=== PATIENT | male | born 1975 | race Caucasian/White ===

== ENCOUNTER 2020-03-25 07:22 | Outpatient (REF) | payer OTHER, SELFPAY ==
[2020-03-25 08:30] LABS: Anion Gap 11 (12-20); Blood Urea Nitrogen 15 mg/dL (9-16); Carbon Dioxide 29 mmol/L (22-29); Chloride 107 mmol/L (96-108); Estimated Glomerular Filt Rate > 60; Sodium 142 mmol/L (135-145)
[2020-03-25 09:01] LABS: Thyroid Stimulating Hormone 1.48 mIU/mL (0.32-4.0)
== END 2020-03-25 07:23 | disposition home or self-care (01) ==
LOC: HO.LAB 07:22
PROVIDERS: PCP Physician Assistant; Visit Provider Internal Medicine Cardiovascular Disease
DX: I42.9 Cardiomyopathy, unspecified (principal); I47.2 Ventricular tachycardia
CPT/HCPCS: 80051; 82565; 83735; 84443; 84520

== ENCOUNTER 2020-08-07 07:19 | Outpatient (REF) | payer OTHER, SELFPAY ==
[2020-08-07 08:07] LABS: Hematocrit 44.2 % (42-52); Hemoglobin 14.8 g/dl (14.0-18.0); Mean Corpuscular HGB Conc 33.5 g/dl (31.0-36.0); Mean Corpuscular Hemoglobin 32.2 pg (27.0-33.0); Mean Corpuscular Volume 96.3 fL (80-98); Mean Platelet Volume 9.9 fL (9.4-12.4); Platelet Count 229 X10*3/uL (160-400); Red Blood Count 4.59 X10*6/uL (4.60-5.80); Red Cell Distribution Width 13.2 % (11.0-16.0); White Blood Count 5.6 X10*3/uL (4.8-10.8)
[2020-08-07 08:33] LABS: Alanine Aminotransferase 19 U/L (0-40); Albumin Level 4.3 g/dL (3.5-5.0); Alkaline Phosphatase 59 U/L (39-117); Anion Gap 13 (12-20); Aspartate Amino Transferase 19 U/L (5-37); Bilirubin Total 0.6 mg/dL (0.0-1.0); Blood Urea Nitrogen 17 mg/dL (9-16); Calcium 9.2 mg/dL (8.4-10.2); Carbon Dioxide 25 mmol/L (22-29); Chloride 109 mmol/L (96-108); Cholesterol 231 mg/dL; Estimated Glomerular Filt Rate > 60; Glucose Fasting 102 mg/dL (60-99); HDL Cholesterol 58 mg/dL; LDL Cholesterol Calculated 145 mg/dl; Potassium 4.5 mmol/L (3.3-5.1); Sodium 142 mmol/L (135-145); Total Protein 7.5 g/dL (6.5-8.0); Triglycerides 142 mg/dL
== END 2020-08-07 07:20 | disposition home or self-care (01) ==
LOC: HO.LAB 07:19
PROVIDERS: PCP Physician Assistant; Visit Provider Physician Assistant
DX: I10 Essential (primary) hypertension (principal); I42.9 Cardiomyopathy, unspecified; Z13.220 Encounter for screening for lipoid disorders
CPT/HCPCS: 36415; 80053; 80061; 85027

== ENCOUNTER → 2020-11-01 07:25 | Outpatient (REF) | payer OTHER, SELFPAY ==
--- NOTE | 2020-11-01 07:31 | CA_ITS ---
Transthoracic Echocardiogram Patient (Last, First, Middle): Sean Bush, Gender: Male Date of : 1975 Age: 45 Procedure Date: 11/01/2020 Procedure Type: Transthoracic Echocardiogram Location: OP Height: 180.34 cm Weight: 81.65 kg BSA: 2.02 m2 Heart Rate: bpm BP: 118 / 60 mmHg Cornice Upholsterer: Referring MD: Leon Fox MD Bsa Officer: Victor Hugo Leggett MD Symptoms: CARDIOMYOPATHY Study Quality: Fair ECG Rhythm: Sinus Conclusions: - 1. 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 Mild aortic and mitral regurgitation 3. Normal RV systolic pressure 4. No pericardial effusion Findings Left Ventricle Normal left ventricular cavity size. There is normal left ventricular wall thickness. The left ventricular systolic function is moderately decreased. The visually estimated ejection fraction is between 35-40%. There is moderate global hypokinesis. Spectral Doppler is indicative of an impaired relaxation filling pattern. E/E prime ratio is <8, consistent with normal filling pressures. Evidence suggests grade I (mild) diastolic dysfunction. There is no evidence of a ventricular septal defect. There is heavy trabeculation in the distal 3rd of the left ventricle suggestive of noncompaction. Right Ventricle Normal right ventricular cavity size and systolic function. There is an ICD wire seen in the right ventricle. Atria The left atrium is mildly dilated. There is no evidence of interatrial shunt. The right atrium is normal in size. Aortic Valve Normal aortic valve structure and function. There is no aortic valve stenosis. There is mild aortic valve regurgitation. Mitral Valve Normal mitral valve structure and function. There is trace mitral valve regurgitation. There is no mitral valve stenosis. Pulmonic Valve The pulmonic valve is likely normal. Tricuspid Valve Likely normal tricuspid valve structure and function. There is mild tricuspid valve regurgitation. The right ventricular systolic pressure is normal. The right ventricular systolic pressure is 23 mmHg. Normal right atrial pressure. There is no evidence of pulmonary hypertension. Great Vessels All visible segments of the aorta are normal in size. The pulmonary artery was not well visualized. Venous The inferior vena cava is normal in size and collapses greater than 50% with inspiration. Pericardium/Pleural There is no evidence of pericardial effusion. Prior Study Comparison No significant change compared to prior study dated: 05/09/2019. Measurements 2D Linear Measurements IVSd: 1.14 0.6-0.9/0.6-1.0 cm LVIDd: 6.16 3.9-5.3/4.2-5.9 cm LVIDd Index: 3.05 2.4-3.2/2.2-3.1 cm/m2 LVIDs: 4.87 2.0-3.6 cm LVPWd: 1.10 0.7-1.1 cm LA Diam: 4.50 2.7-3.8/3.0-4.0 cm LAIDs Index: 2.23 1.5-2.3 cm/m2 LV Mass: 373.32 67-162/88-224 g LV Mass Index: 184.81 43-95/49-115 g/m2 LVOT Diam: 2.50 3.0+(-)1.3 cm 2D Systolic Function EF 4C: 34.90 >55% EF 2C: 29.80 >55% EF BiP: 36.70 >55% Mitral Valve MV Pk E: 0.53 MV PK A: 0.55 MV Decel Time: 146.00 E/A: 1.00 E'Lateral: 8.70 E'Medial: 5.98 E/E' Med: 8.90 E/E' Lat: 6.10 PHT: 43.00 MVA PHT: 5.12 Decel Door: 3.65 Aortic Valve AoV Pk Kaden: 1.23 AoV Mn Kaden: 0.81 AoV VTI: 0.31 AoV Pk Grad: 6.00 Aov Mn Grad: 3.00 HOLLI Cont.VTI: 2.16 LVOT LVOT Pk Kaden: 0.56 LVOT Mn Kaden: 0.35 LVOT VTI: 0.13 LVOT Pk Grad: 1.00 LVOT Mn Grad: 1.00 LVOT Diam: 2.50 LVOT Area: 4.91 Diastolic Function MV Pk E: 0.53 MV Pk A: 0.55 E/A: 1.00 E'Medial: 5.98 E/E' Med: 8.90 E' Laterial: 8.70 E/E' Lat: 6.10 Tricuspid Valve TR Pk Kaden: 2.24 TR Pk Grad: 20.00 RA Press: 3.00 RVSP: 23.00 Pulmonary Valve PV Pk Kaden: 1.08 Peak PV Grad: 5.00 Updated in Other Vendor System with Status of Final Victor Hugo Leggett MD electronically signed on 11/01/2020 4:15:12 PM with status of Final
== END ==
LOC: HO.CARD 07:25
PROVIDERS: PCP Physician Assistant; Visit Provider Internal Medicine Cardiovascular Disease
DX: I21.9 Acute myocardial infarction, unspecified (principal); I25.10 Atherosclerotic heart disease of native coronary artery without angina pectoris; Z82.49 Family history of ischemic heart disease and other diseases of the circulatory system
CPT/HCPCS: 93306

== ENCOUNTER 2021-04-24 06:50 | Outpatient (REF) | payer OTHER, SELFPAY ==
[2021-04-24 08:28] LABS: Alanine Aminotransferase 26 U/L (0-40); Anion Gap 11 (12-20); Aspartate Amino Transferase 18 U/L (5-37); Blood Urea Nitrogen 13 mg/dL (9-16); Calcium 8.8 mg/dL (8.4-10.2); Carbon Dioxide 26 mmol/L (22-29); Chloride 108 mmol/L (96-108); Cholesterol 237 mg/dL; Estimated Glomerular Filt Rate > 60; Glucose Random 100 mg/dL (60-115); HDL Cholesterol 46 mg/dL; LDL Cholesterol Calculated 164 mg/dl; Potassium 4.9 mmol/L (3.3-5.1); Sodium 140 mmol/L (135-145); Triglycerides 135 mg/dL
== END 2021-04-24 06:51 | disposition home or self-care (01) ==
LOC: HO.LAB 06:50
PROVIDERS: PCP Physician Assistant; Visit Provider Internal Medicine Cardiovascular Disease
DX: I42.8 Other cardiomyopathies (principal)
CPT/HCPCS: 36415; 80048; 80061; 84450; 84460

== ENCOUNTER 2021-05-15 08:06 | Outpatient (REF) | payer OTHER, SELFPAY ==
[2021-05-15 09:14] LABS: Anion Gap 12 (12-20); Blood Urea Nitrogen 14 mg/dL (9-16); Carbon Dioxide 29 mmol/L (22-29); Chloride 104 mmol/L (96-108); Estimated Glomerular Filt Rate > 60; Magnesium 2.2 mg/dL (1.6-2.6); Potassium 5.1 mmol/L (3.3-5.1); Sodium 140 mmol/L (135-145)
[2021-05-15 14:49] LABS: Thyroid Stimulating Hormone 1.45 uIU/mL (0.32-4.0)
== END 2021-05-15 08:07 | disposition home or self-care (01) ==
LOC: HO.LAB 08:06
PROVIDERS: PCP Physician Assistant; Visit Provider Internal Medicine Cardiovascular Disease
DX: I47.2 Ventricular tachycardia (principal)
CPT/HCPCS: 36415; 80051; 82565; 83735; 84443; 84520

== ENCOUNTER 2021-05-27 06:58 | Outpatient (REF) | payer OTHER, SELFPAY ==
[2021-05-27 07:51] LABS: Alanine Aminotransferase 17 U/L (0-40); Aspartate Amino Transferase 19 U/L (5-37); Cholesterol 184 mg/dL; HDL Cholesterol 43 mg/dL; LDL Cholesterol Calculated 116 mg/dl; Triglycerides 126 mg/dL
== END 2021-05-27 06:59 | disposition home or self-care (01) ==
LOC: HO.LAB 06:58
PROVIDERS: PCP Physician Assistant; Visit Provider Internal Medicine Cardiovascular Disease
DX: I42.8 Other cardiomyopathies (principal); I47.2 Ventricular tachycardia
CPT/HCPCS: 36415; 80061; 84450; 84460

== ENCOUNTER → 2021-06-18 08:23 | Outpatient (REF) | payer OTHER, SELFPAY ==
--- NOTE | ~2021-06-18 | NM_ITS ---
Myocardial perfusion study Indication: Ventricular tachycardia to assess for myocardial ischemia Technique: The patient was brought in for a Lexiscan perfusion study on 06/18/2020. Patient performed low-level exercise and was injected 0.4 mg of Lexiscan intravenously. Within a minute of injection, 30 mCi of sestamibi was given intravenously. Images were obtained using the SPECT gamma camera interlaced with the gating device. Images were obtained in supine position. Resting perfusion study was performed on 06/20/2020. Patient was administered 30 mCi of sestamibi intravenously at rest. Images were then obtained in supine position. Images were obtained with and without CT attenuation. Total DLP 92 mGy-cm. Images were processed with the software and compared side to side in short axis, horizontal long axis and vertical long axis views. Findings: The stress perfusion study showed non attenuated images show very small area of mildly reduced uptake in the basal and. As well as basal inferoseptal wall of the LV myocardium. This finding is also seen on attenuated corrected images. Remainder of the LV myocardium is normally perfused.. The gated study shows low normal LV systolic function with calculated LVEF of 53%. LV cavity is mildly dilated size. The gated study shows diffusely reduced wall thickening and contraction of segments. Resting study shows normal uptake of radiotracer in all segments of LV myocardium. Gating at rest reveals diffuse mild hypokinesis with ejection fraction at 45%. The findings are consistent with probably small area of reversible defect of the basal inferior and basal inferoseptal wall suggestive of ischemia.. NM/NM chloe perf SPECT rest & str Impression: 1. Myocardial perfusion imaging study shows mild intensity small area of reversible defect of the basal inferior and basal inferoseptal wall. Shifting attenuation artifact cannot be entirely ruled out on this study 2. Gated LVEF is 53% at stress and 45% with rest 3. Transient ischemic dilatation not present but LV cavity is dilated EKG is nondiagnostic for ischemia
--- NOTE | 2021-06-18 08:26 | CA_ITS ---
Acquisition Time: 2021-06-18 09:40:11 Total Exercise Time: 00:02:00 Test Indications: VT Medications: SEE CHART Protocol: LEXISCAN Max HR: 110 BPM 62% of Pred: 175 BPM Max BP: 114/080 mmHG Max Work Load: 1.6 METS Pharmacological stress test with Lexiscan injection, while walking on treadmill, without anginal symptoms, with isolated PVCs, with normotensive response to injection, with nondiagnostic EKG for ischemia. In recovery he reported lightheadedness that was treated with Aminophylline 75mg IVP to reverse Lexiscan with resolution of symptoms. Nuclear images pending. Test reviewed with Dr Leggett. Referred By: Leon Fox Overread By: ALANA BLANCO
== END ==
LOC: HO.CARD 08:23
PROVIDERS: PCP Physician Assistant; Visit Provider Internal Medicine Cardiovascular Disease
DX: I47.2 Ventricular tachycardia (principal); I42.8 Other cardiomyopathies
CPT/HCPCS: 78452; 93017; A9500; J0280; J2785

== ENCOUNTER 2022-04-14 09:56 | Outpatient (REF) | payer OTHER, SELFPAY ==
[2022-04-14 11:18] LABS: Anion Gap 17 (12-20); Blood Urea Nitrogen 11 mg/dL (9-16); Calcium 9.5 mg/dL (8.4-10.2); Carbon Dioxide 24 mmol/L (22-29); Chloride 106 mmol/L (96-108); Estimated Glomerular Filt Rate > 60; Glucose Random 96 mg/dL (60-115); Magnesium 2.1 mg/dL (1.6-2.6); Potassium 4.8 mmol/L (3.3-5.1); Sodium 142 mmol/L (135-145)
== END 2022-04-14 09:57 | disposition home or self-care (01) ==
LOC: HO.LAB 09:56
PROVIDERS: PCP Physician Assistant; Visit Provider Internal Medicine Cardiovascular Disease
DX: I47.20 Ventricular tachycardia, unspecified (principal)
CPT/HCPCS: 36415; 80048; 83735

== ENCOUNTER 2022-10-29 07:05 | Outpatient (REF) | payer OTHER, SELFPAY ==
[2022-10-29 07:39] LABS: Hematocrit 44.2 % (42.0-52.0); Hemoglobin 15.3 g/dl (14.0-18.0); Mean Corpuscular HGB Conc 34.6 g/dl (31.0-36.0); Mean Corpuscular Hemoglobin 32.5 pg (27.0-33.0); Mean Corpuscular Volume 93.8 fL (80.0-98.0); Mean Platelet Volume 9.3 fL (9.4-12.4); Platelet Count 213 X10*3/uL (160-400); Red Blood Count 4.71 X10*6/uL (4.60-5.80); Red Cell Distribution Width 13.2 % (11.0-16.0); White Blood Count 4.9 X10*3/uL (4.8-10.8)
[2022-10-29 08:45] LABS: Alanine Aminotransferase 19 U/L (0-40); Albumin Level 4.2 g/dL (3.5-5.0); Alkaline Phosphatase 63 U/L (39-117); Anion Gap 15 (12-20); Aspartate Amino Transferase 21 U/L (5-37); Bilirubin Total 0.9 mg/dL (0.0-1.0); Blood Urea Nitrogen 13 mg/dL (9-16); Calcium 9.3 mg/dL (8.4-10.2); Carbon Dioxide 24 mmol/L (22-29); Chloride 107 mmol/L (96-108); Cholesterol 246 mg/dL; Estimated Glomerular Filt Rate > 60; Glucose Fasting 103 mg/dL (60-99); HDL Cholesterol 45 mg/dL; LDL Cholesterol Calculated 166 mg/dl; Potassium 4.8 mmol/L (3.3-5.1); Sodium 141 mmol/L (135-145); Total Protein 7.2 g/dL (6.5-8.0); Triglycerides 177 mg/dL
== END 2022-10-29 07:06 | disposition home or self-care (01) ==
LOC: HO.LAB 07:05
PROVIDERS: PCP Physician Assistant; Visit Provider Physician Assistant
DX: I42.9 Cardiomyopathy, unspecified (principal); E78.00 Pure hypercholesterolemia, unspecified
CPT/HCPCS: 36415; 80053; 80061; 84443; 85027

== ENCOUNTER → 2022-11-02 14:22 | Outpatient (BNVA) | payer OTHER, SELFPAY | PROVIDERS: PCP Physician Assistant; Visit Provider Nurse Practitioner Family ==

== ENCOUNTER 2023-02-02 07:13 | Outpatient (REF) | payer OTHER, SELFPAY ==
[2023-02-02 08:10] LABS: Alanine Aminotransferase 19 U/L (0-40); Albumin Level 4.2 g/dL (3.5-5.0); Alkaline Phosphatase 66 U/L (39-117); Anion Gap 12 (12-20); Aspartate Amino Transferase 21 U/L (5-37); Bilirubin Total 0.7 mg/dL (0.0-1.0); Blood Urea Nitrogen 10 mg/dL (9-16); Calcium 9.4 mg/dL (8.4-10.2); Carbon Dioxide 23 mmol/L (22-29); Chloride 111 mmol/L (96-108); Cholesterol 239 mg/dL (<200); Estimated Glomerular Filt Rate > 60; Glucose Fasting 108 mg/dL (60-99); Glucose Random 106 mg/dL (60-115); HDL Cholesterol 52 mg/dL (>40); LDL Cholesterol Calculated 160 mg/dL (<100); Potassium 4.7 mmol/L (3.3-5.1); Sodium 141 mmol/L (135-145); Total Protein 7.5 g/dL (6.5-8.0); Triglycerides 139 mg/dL (<150)
== END 2023-02-02 07:14 | disposition home or self-care (01) ==
LOC: HO.LAB 07:13
PROVIDERS: Absent Provider Internal Medicine Cardiovascular Disease; PCP Physician Assistant; Visit Provider Physician Assistant
DX: I49.01 Ventricular fibrillation (principal); E78.2 Mixed hyperlipidemia; R73.09 Other abnormal glucose
CPT/HCPCS: 36415; 80048; 80053; 80061; 83735

== ENCOUNTER 2023-04-13 08:42 | Outpatient (REF) | payer OTHER, SELFPAY ==
[2023-04-13 10:05] LABS: Alanine Aminotransferase 21 U/L (0-40); Aspartate Amino Transferase 21 U/L (5-37); Cholesterol 129 mg/dL (<200); HDL Cholesterol 52 mg/dL (>40); LDL Cholesterol Calculated 52 mg/dL (<100); Triglycerides 129 mg/dL (<150)
[2023-04-13 10:06] LABS: Anion Gap 14 (12-20); Blood Urea Nitrogen 13 mg/dL (9-16); Calcium 9.8 mg/dL (8.4-10.2); Carbon Dioxide 24 mmol/L (22-29); Chloride 109 mmol/L (96-108); Estimated Glomerular Filt Rate > 60; Glucose Random 104 mg/dL (60-115); Magnesium 2.1 mg/dL (1.6-2.6); Potassium 4.6 mmol/L (3.3-5.1); Sodium 142 mmol/L (135-145)
== END 2023-04-13 08:43 | disposition home or self-care (01) ==
LOC: HO.LAB 08:42
PROVIDERS: Nurse Practitioner Family; PCP Physician Assistant; Visit Provider Internal Medicine Cardiovascular Disease
DX: E78.5 Hyperlipidemia, unspecified (principal); I47.29 Other ventricular tachycardia
CPT/HCPCS: 36415; 80048; 80061; 83735; 84450; 84460

== ENCOUNTER 2023-09-15 08:33 | Outpatient (AMB) | payer OTHER, SELFPAY ==
--- NOTE | 2023-09-15 08:53 | A.OFFPC_ITS ---
Vital Signs 09/15/23 08:56 Height 5 ft 11 in Weight 198 lb 6 oz BMI 27.7 BP 88/62 L Blood Pressure Location Lt brachial Position Sitting Pulse 72 Pulse Source Pulse Oximeter Pulse Oximetry (%) 98 Oxygen Delivery Method Room Air Intake Visit Reasons: Annual Exam Intake Note: Patient is here today for a physical. 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 Required: No K 9 Police Officer: Not Required per policy Accompanied by: Self / Same As Patient Allergies montelukast [From Singulair] Allergy (Unknown, Verified 09/15/23 09:03) GERD Medication List - Last Reconciled 09/15/23 by Tyler Davies PA-C bisacodyl (Dulcolax (bisacodyl)) 10 mg (2 x 5 mg) PO ONCE 1 day carvedilol 6.25 mg PO BID 90 days carvedilol 25 mg PO BID 90 days lisinopril 2.5 mg (1/2 x 5 mg) PO BID polyethylene glycol 3350 (Miralax) 238 grams PO ONCE Tobacco use date assessed: 09/15/23 Dental Screening Dental Screen Date: 09/15/23 Did you have a dental visit in the last 12 months?: Yes Did you have a dental problem in the last 6 months where you did not have access to dental care?: No Was dental information given to patient?: Patient has dentist HPI Annual Exam HPI Details Sean is a 48 -year-old male here today for an annual physical. Patient's past medical history significant for essential hypertension, history ventricular tachycardia requiring ICD implantation, dilated cardiomyopathy, hyperlipidemia. ? .. ? Cardiomyopathy, history of ventricular tachycardia requiring ICD Still followed by Cardiology q.6 months. Patient denies any chest pains, palpitations, dizziness.? He did have his ICD discharge and March of 2020 to, followed up with File Keeper whom believes it was in the setting of mild dehydration otherwise no further symptoms. -->Of note blood pressure on the lower s emely today. Patient asymptomatic. We attribute his lower blood pressures to a small degree of dehydration. Advised to monitor his blood pressure at home and if consistently below 90/60 will consider discontinuing lisinopril ? .. ? HTN: Has been stable , currently on lisinopril 2.5 mg b.i.d.. Noted hypotension today in office. ? . ? .. ? VAccine: UTD with FLu and tetanus.? Also has gotten COVID vaccine, up-to-date with flu vaccine Colon cancer screening: Has upcoming scheduled colonoscopy though will need to reschedule due to conflicts in childcare [facility] Surgical History History of placement of internal cardiac defibrillator History of cardiac catheterization History of open heart surgery Family History (Updated 09/15/23 @ 09:07 by Tyler Davies PA-C) Father No problems noted. 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 1. Little interest or pleasure in doing things: not at all 2. Feeling down, depressed, or hopeless: not at all 3. Trouble falling or staying asleep, or sleeping too much: not at all 4. Feeling tired or having little energy: not at all 5. Poor appetite or overeating: not at all 6. Feeling bad about yourself - or that you are a failure or have let yourself or your family down: not at all 7. Trouble concentrating on things, such as reading the newspaper or watching television: not at all 8. Moving or speaking so slowly that other people could have noticed. Or the opposite - being so fidgety or restless that you have been moving around a lot more than usual: not at all 9. Thoughts that you would be better off or of hurting yourself in some way: not at all Total score: 0 Depression Screening Interpretation: Negative Depression Screening Done: Yes Source: Developed by Drs. Juan Griffin, Jadyn Toribio, Zohaib Curiel and colleagues, with an educational ewa from [employer]. Thrive Questionnaire Date Thrive assessed: 09/15/23 I am a: Patient What is your living situation today?: I have a steady place to live Within the past 12 months, did the food you bought not last and you didn't have the money to get more?: Never true Within the past 12 months, did you worry whether your food would run out before you got money to buy more?: Never true Do you have trouble paying for medicines?: No Do you have trouble getting transportation to medical appointments?: No Do you have trouble paying your heating and electricity bill?: No Do you have trouble taking care of your child, family member or friend?: No Do you have trouble with day-to-day activities such as bathing, preparing meals, shopping, managing finances, etc.?: No Are you currently unemployed and looking for a job?: No Are you interested in more education?: No Currently or been in a relationship where the following occur: no concerns reported THRIVE Score: 0 AUDIT C Alcohol Use Questionnaire (AUDIT-C) 1. How often do you have a drink containing alcohol?: 2-3 times a week 2. How many drinks containing alcohol do you have on a typical day when you are drinking?: 1 or 2 Total Score: 3 NOBLE-7 AMB Questionnaire NOBLE-7 Date NOBLE - 7 assessed: 09/15/23 Feeling nervous, anxious, or on edge: 0 = Not at all Not being able to stop or control worryin = Not at all Worrying too much about different things: 0 = Not at all Trouble relaxin = Not at all Being so restless that it is hard to sit still: 0 = Not at all Becoming easily annoyed or irritable: 0 = Not at all Feeling afraid as if something awful might happen: 0 = Not at all Total NOBLE-7 score (0-4 normal; 5-9 mild; 10-14 moderate; 15-21 severe): 0 Source: Developed by Drs. Juan Griffin, Zohaib Zamora and colleagues, with an educational ewa from [employer]. Review of Systems Const Denies body aches, Denies chills, Denies excessive sweating, Denies fatigue, Denies fever(s) and Denies headache(s) Eyes Denies blurry vision ENT Denies dysphagia, Denies vertigo, Denies dizziness, Denies headache(s), Denies hearing loss and Denies tinnitus Card Denies chest pain, Denies chest pain with activity, Denies syncope, Denies irregular heart rhythm and Denies dyspnea Resp Denies chest congestion, Denies cough, Denies hemoptysis, Denies dyspnea and Denies wheezing GI Denies abdominal pain, Denies melena, Denies hematochezia, Denies coffee ground emesis, Denies dysphagia, Denies diarrhea, Denies nausea and Denies vomiting Denies difficulty urinating, Denies dysuria, Denies urinary frequency, Denies urinary hesitancy and Denies urinary urgency Musc Denies arthralgias, Denies limited range of motion, Denies muscle cramps and De nies muscle weakness Skin/Breast Denies rash and Denies skin ulcer Neuro Denies Abnormal speech present, Denies confusion, Denies vertigo, Denies dizz iness, Denies syncope, Denies headache(s), Denies memory loss and Denies seizure-like activity Psych Denies anxiety, Denies confusion, Denies depression, Denies memory loss, Denies panic attacks and Denies paranoia Endo Denies excessive sweating, Denies fatigue, Denies flushing, Denies polydipsia and Denies polyuria Aller/Immun Denies wheezing Physical exam (Primary Care) Vital Signs: Last Vital Signs Pulse 72 09/15/23 08:56 BP 88/62 L 09/15/23 08:56 Pulse Ox 98 09/15/23 08:56 Oxygen Delivery Method Room Air 09/15/23 08:56 BMI result Body Mass Index 27.7 Tobacco/Smoking Status: Tobacco use Status Tobacco use date assessed 09/15/23 09/15/23 09:01 Patient Tobacco Use Status Never used Tobacco 09/15/23 09:07 e-Cigarette/Vaping Use Never Used 09/15/23 09:07 PHQ-9: PHQ-9 Score PHQ-9: Total score 0 09/15/23 10:35 Depression Screening Interpretation: Negative Thrive Assessment: Date of Thrive Assessment Date Thrive assessed 09/15/23 09/15/23 09:01 Currently or been in a relationship where the following occur: no concerns reported Const General: cooperative, comfortable, no acute distress, alert and awake; No confusion Orientation/consciousness: oriented to person, oriented to place, patient oriented x3 and No confusion HENMT Head: Yes normocephalic Ears: external ears normal and TM's normal bilaterally Face and sinus: No sinus tenderness Mouth: Normal oral and palatal mucosa present and tongue normal Teeth and gingiva: dentition normal and gingiva normal Throat: Yes posterior oropharynx normal, Yes tonsils normal and Yes uvula midline Eyes Conjunctivae: conjunctivae normal Sclerae: sclerae normal Pupils: Equal, round and reactive pupils present EOM: EOMs intact bilaterally Direct Ophthalmoscopy: No no photophobia Neck Neck: Yes no lymphadenopathy, No tender and Yes no JVD Thyroid: Thyroid normal Carotids: no bruits Chest Chest palpation & inspection: no tenderness Resp Effort & Inspection: normal respiratory effort, no audible wheezes, not labored and no stridor Auscultation: no crackles, no rales, no rhonchi and no wheezes Cardio Jugular venous distension: no JVD Rate: regular rate, not bradycardic and not tachycardic Rhythm: regular rhythm Bruits: no carotid bruits Peripheral pulses: Peripheral pulses 2+ throughout GI Inspection: Yes normal to inspection, No abdominal wall ecchymosis and No visible herniation Palpation (GI): Soft to palpation, nontender, no guarding, not rigid and No hepatosplenomegaly present Auscultation: normoactive bowel sounds General: Yes no CVA tenderness Back/Spine/Pelvis Back: no CVA tenderness and No back tenderness Cervical Spine: cervical ROM normal Thoracic/Lumbar Spine: thoracic and lumbar spine normal to inspection, straight leg raise negative bilaterally, No thoraco-lumbar ROM limited and No lumbar spinal tenderness Skin Lesions: no lesions Rashes: no rashes Wounds: no wounds Neuro General: oriented to person, oriented to place, patient oriented x3, CN's II-XI intact bilaterally and No confusion Cranial nerves: Yes Equal, round and reactive pupils present and Yes Normal accommodation reflex present Cognition (Neuro): normal cognition Speech: No Abnormal speech present Gait exam (Neuro): Normal gait present Motor exam (neuro): 5/5 motor strength present throughout Extrem Right upper extremity: full ROM; no cyanosis Left upper extremity: full ROM; no cyanosis Right lower extremity: no edema Left lower extremity: no edema Psych Appearance: grossly normal Mental Status: mental status grossly normal Affect: normal affect Attitude: cooperative Thought process: Normal thought process present Assessment and Plan Assessment & Plan (1) Annual physical exam: Code(s): Z00.00 - Encounter for general adult medical examination without abnormal findings (2) Screening for diabetes mellitus (DM): Code(s): Z13.1 - Encounter for screening for diabetes mellitus (3) Colon cancer screening: Code(s): Z12.11 - Encounter for screening for malignant neoplasm of colon Plan: Has upcoming scheduled colonoscopy (4) History of placement of internal cardiac defibrillator: Comment: 2019 Shayy Code(s): Z95.810 - Presence of automatic (implantable) cardiac defibrillator Plan: Of note patient did an episode of tachycardia which prompted an ICD discharge in March 2022. Has followed up with his relocation associate whom believes it was in the setting of mild dehydration. Now patient trying to to stay well hydrated. Otherwise no further episodes (5) Cardiomyopathy: Code(s): I42.9 - Cardiomyopathy, unspecified Qualifiers: Cardiomyopathy type: unspecified Qualified Code(s): I42.9 - Cardiomyopathy, unspecified Plan: Patient continues to follow relocation associate's. No overt signs of Congestive heart failure. (6) Hypotension: Code(s): I95.9 - Hypotension, unspecified Qualifiers: Hypotension type: hypotension due to drug Qualified Code(s): I95.2 - Hypotension due to drugs Plan: Unclear etiology to patient's hypotension. He is asymptomatic at this time. Could be from side effect of medication versus hypovolemia. Advised to stay well hydrated. Continue monitoring blood pressure and if consistently below 90/60 will consider discontinuing lisinopril Orders: Orders Hemoglobin A1c Today R73.09 - Other abnormal glucose Complete Blood Count no Diff Today I42.9 - Cardiomyopathy, unspecified Comprehensive [place]. Panel Fast Today R73.09 - Other abnormal glucose Lipid Panel Today E78.2 - Mixed hyperlipidemia Coding Level of Care Code Est Pt Prev Care 40-64y([id number]) Diagnoses Annual physical exam Z00.00 Screening for diabetes mellitus (DM) Z13.1 Colon cancer screening Z12.11 History of placement of internal cardiac defibrillator Z95.810 Cardiomyopathy, unspecified type I42.9 Cardiomyopathy type: unspecified Hypotension due to drugs I95.2 Hypotension type: hypotension due to drug
[2023-09-15 08:56] VITALS: BP 88/62; PULSE 72; O2SAT 98; BMI 27.7
== END 2023-09-15 09:21 | disposition home or self-care (01) ==
PROVIDERS: Visit Provider Physician Assistant
DX: Z00.00 Encounter for general adult medical examination without abnormal findings (principal); I42.9 Cardiomyopathy, unspecified; Z13.1 Encounter for screening for diabetes mellitus; Z12.11 Encounter for screening for malignant neoplasm of colon; Z95.810 Presence of automatic (implantable) cardiac defibrillator; I95.2 Hypotension due to drugs
CPT/HCPCS: 99396

== ENCOUNTER 2024-02-01 07:16 | Day surgery (SDC) | payer OTHER, SELFPAY ==
[2023-06-21 14:53] VITALS: BMI 27.2
--- NOTE | 2024-01-31 10:03 | HO.ANESPROP2 ---
Documented by User: Shi Cunha NP 01/31/24 13:35 HPI - Anesthesia Eval Consult details Narrative: 48yo M for Colonoscopy Noncompaction CMP: Follows [facility] [id number]. Stable at last office visit 07/2023 ICD in situ: Discharge x 1 2021 d/t vfib, carvedilol increased. Last interrrogation 12/2023 on chart. PMFSH Active Problems Active Problems: All Active Problems Hypotension (Acute) Impaired glucose metabolism (Acute) History of placement of internal cardiac defibrillator (Acute) Colon cancer screening (Acute) Other dental procedure status (Acute) HLD (hyperlipidemia) (Acute) Allergic conjunctivitis (Acute) Screening for diabetes mellitus (DM) (Acute) Bronchitis (Acute) Other dental procedure status (Acute) Screening for hypercholesterolemia (Acute) Cardiomyopathy (Acute) Annual physical exam (Acute) Family History Family History Father No problems noted. Mother Breast cancer Brother In good health Son In good health Daughter In good health Surgical History Surgical History History of placement of internal cardiac defibrillator History of cardiac catheterization History of open heart surgery Social History Social History Housing: House Alcohol intake: current Alcohol intake frequency: a few times a week Alcohol type: beer Patient Tobacco Use Status: Former Tobacco user e-Cigarette/Vaping Use: Never Used Second Hand Smoke Exposure: No Use of substances other than those prescribed or required for medical reasons: No Are you DNR?: No Advance Directives: No Advance Directives Information Provided: Yes service: No Current occupational status: employed 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 Mild aortic and mitral regurgitation 3. Normal RV systolic pressure 4. No pericardial effusion NM chloe perf SPECT rest & str 2021 Impression: 1. Myocardial perfusion imaging study shows mild intensity small area of reversible defect of the basal inferior and basal inferoseptal wall. Shifting attenuation artifact cannot be entirely ruled out on this study 2. Gated LVEF is 53% at stress and 45% with rest 3. Transient ischemic dilatation not present but LV cavity is dilated EKG is nondiagnostic for ischemia Documented by User: Glen Lacy MD 02/01/24 07:38 [facility] Family History Family History Father No problems noted. Mother Breast cancer Brother In good health Son In good health Daughter In good health Family history of problems with anesthesia: No Surgical History Surgical History History of placement of internal cardiac defibrillator History of cardiac catheterization History of open heart surgery History of Problems with Anesthesia: No Social History Social History Housing: House Alcohol intake: current Alcohol intake frequency: a few times a week Alcohol type: beer Patient Tobacco Use Status: Former Tobacco user e-Cigarette/Vaping Use: Never Used Second Hand Smoke Exposure: No Use of substances other than those prescribed or required for medical reasons: No Are you DNR?: No Advance Directives: No Advance Directives Information Provided: Yes service: No Current occupational status: employed 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 Cognitive needs: No Hearing needs: No Vision needs: No Meds Allergies Allergy/AdvReac Type Severity Reaction Status Date / Time montelukast [From [facility]] Allergy Unknown GERD Verified 09/15/23 09:03 Home Medications ?Medication ?Instructions ?Recorded ?Confirmed ?Last Taken ?Type carvedilol 6.25 mg tablet 3.125 mg PO BID 02/01/24 02/01/24 02/01/24 History Exam Airway Mallampati Class: I TM Dist: >3cm Neck ROM: Full Loose/Missing/Broken Teeth: No Assessment and Plan Assessment Anesthesia Assessment: Anesthesia Plan Discussed Final Anesthetic Review Family History of Problems with Anesthesia: No History of Problems with Anesthesia: No NPO: Yes ASA Class: III Final Preanesthetic Review: No Changes in Pt Med Stat, Meds/Allgs Chart Reviewed, Consent Obtained/Reviewed and Anes Risks/Benef Reviewed Patient Risk: Intermediate Procedure Risk: Low Anesthetic Plan Anesthetic Plan: MAC: Disposition: Standard PACU
[2024-02-01 07:30] VITALS: BMI 27.2
[2024-02-01 07:34] VITALS: BP 124/72; PULSE 77; RESP 16; TEMP 36.4; O2SAT 97
--- NOTE | 2024-02-01 08:05 | MHC.SHP ---
Pre-Procedural Eval Section A - 24 Hr Update-Section A only Date of Service: 02/01/24 Section B - Complete if H&P > 30 days Chief Complaint: Encounter for screening for malignant neoplasm of Relevant Family History (Specify if Yes): No Relevant Social History: None Present Medications: see Short Stay Collaborative assessment Medical History: Significant History (HLD, cardiomyopathy ) History of Previous Operations: Relevant previous surgery/procedure and date(s) (History of placement of internal cardiac defibrillator History of cardiac catheterization History of open heart surgery) Allergies: Allergies Allergy/AdvReac Type Severity Reaction Status Date / Time montelukast [From Singulair] Allergy Unknown GERD Verified 09/15/23 09:03 Review of Systems Sugical H&P ROS: Negative: Constitution, Cardiovascular, Respiratory, Neurological, Psychiatric, Hem-Onc, Allergic/Immunologic, Gastrointestinal, Genitourinary, Musculoskeletal, Integumentary, Endocrine and Eyes/Ears/Nose/Throat Exam Surgical H&P Exam: Normal: HEENT, Normal: Heart, Normal: Lungs, Normal: Extremities, Normal: Abdomen, Normal: Skin and Normal: Neurological Plan Diagnosis/Plan: Unchanged I have reviewed the history and physical and performed a pertinent physical examination on my patient. No changes have occurred unless specified. Time Spent With Patient Time: Total time managing care of this patient today ____ minutes.
[2024-02-01] MEDS: Lactated Ringers 1,000 ML 50 ML IVCONT (08:07)
--- NOTE | 2024-02-01 08:37 | P.OPN-COLO_ITS ---
Colonoscopy Operative Note Operative Note Date of Service: 02/01/24 Narrative: Operative Information Procedure Description: Colonoscopy Indication: screening Anesthesia: MAC COLONOSCOPY Instrument: Olympus variable stiffness pediatric scope 190L Colonoscopy Monitoring: Vital signs and clinical assessment, continuous EKG monitoring, Pulse oximetry, Carbon Dioxide monitoring and blood pressure monitoring were done throughout the procedure. Colon withdrawal time was 10 minutes. Procedure: The patient was placed in the left lateral decubitis position and pre-procedure medications were administered. After a digital rectal examination of the ano-rectum, the video colonoscope was inserted into the rectum and advanced through the colon to the cecum/TI. The colonoscope was slowly withdrawn in a retrograde panoramic fashion and the colon mucosa was carefully examined including a retroflexed view of the rectum. Findings and interventions are described below. Procedure Difficulty: easy Findings: Terminal Ileum-normal Cecum:normal Right sided retroflexion- normal Ascending Colon: normal Transverse Colon -normal Descending Colon:normal Sigmoid Colon: normal Rectum: Retroflexion with small internal hemorrhoids seen, grade I Anorectum - normal Intervention: none Colon preparation: [place] Bowel Preparation Scale Right colon; 2 Transverse colon: 3 Left colon; 3 (0 = Unprepared colon segment with mucosa not seen due to solid stool that cannot be cleared. 1 = Portion of mucosa of the colon segment seen, but other areas of the colon segment not well seen due to staining, residual stool and/or opaque liquid. 2 = Minor amount of residual staining, small fragments of stool and/or opaque liquid, but mucosa of colon segment seen well. 3 = Entire mucosa of colon segment seen well with no residual staining, small fragments of stool or opaque liquid) Impression and Post Procedure Diagnosis: internal hemorrhoids Plan: High fiber diet leaflet Avoid straining at stool, epsom salts and sitz bath, anusol supps or cream Repeat Colonoscopy in 10 years or earlier if clinically indicated Above findings were reviewed with the patient and relevant handouts were provided if indicated.
[2024-02-01 08:45] VITALS: BP 98/58; PULSE 83; RESP 16; TEMP 36.8; O2SAT 96
[2024-02-01 09:00] VITALS: BP 106/70; PULSE 71; RESP 16; TEMP 36.8; O2SAT 96
== END 2024-02-01 09:47 | disposition home or self-care (01) ==
PROVIDERS: PCP Physician Assistant; Visit Provider Internal Medicine Gastroenterology
PROC: 0DJD8ZZ Inspection of Lower Intestinal Tract, Via Natural or Artificial Opening Endoscopic (ICD-10-PCS; CPT 45378; principal; 2024-02-01 09:00)
DX: Z12.11 Encounter for screening for malignant neoplasm of colon (principal); K64.0 First degree hemorrhoids; I42.9 Cardiomyopathy, unspecified; Z95.810 Presence of automatic (implantable) cardiac defibrillator; E78.5 Hyperlipidemia, unspecified; R73.02 Impaired glucose tolerance (oral); I95.9 Hypotension, unspecified; Z79.899 Other long term (current) drug therapy; Z88.8 Allergy status to other drugs, medicaments and biological substances; Z98.890 Other specified postprocedural states; Z87.891 Personal history of nicotine dependence
CPT/HCPCS: 45378; J2704

== ENCOUNTER → 2024-02-01 07:16 | Outpatient (BNV) | payer OTHER, SELFPAY | PROVIDERS: PCP Physician Assistant; Visit Provider Internal Medicine Gastroenterology | DX: Z12.11 Encounter for screening for malignant neoplasm of colon (principal); K64.0 First degree hemorrhoids | CPT/HCPCS: 45378 ==

== ENCOUNTER 2024-03-30 07:30 | Outpatient (REF) | payer OTHER, SELFPAY ==
[2024-03-30 08:02] LABS: Mean Corpuscular HGB Conc 34.1 g/dl (31.0-36.0); Mean Corpuscular Hemoglobin 32.2 pg (27.0-33.0); Mean Corpuscular Volume 94.4 fL (80.0-98.0); Mean Platelet Volume 9.7 fL (9.4-12.4); Platelet Count 230 X10*3/uL (160-400); Red Blood Count 4.66 X10*6/uL (4.60-5.80); Red Cell Distribution Width 13.2 % (11.0-16.0); White Blood Count 5.4 X10*3/uL (4.8-10.8)
[2024-03-30 08:09] LABS: Estimated Average Glucose 108 mg/dL; Hemoglobin A1C 136.1187 umol/L; Hemoglobin A1c % 5.4 % (<6.0); Total Hemoglobin (HGBA1C) 3822.4443 umol/L
[2024-03-30 08:39] LABS: Alanine Aminotransferase 23 U/L (0-40); Albumin Level 4.5 g/dL (3.5-5.0); Alkaline Phosphatase 65 U/L (39-117); Anion Gap 12 (12-20); Aspartate Amino Transferase 21 U/L (5-37); Bilirubin Total 0.6 mg/dL (0.0-1.0); Blood Urea Nitrogen 15 mg/dL (9-16); Calcium 9.8 mg/dL (8.4-10.2); Carbon Dioxide 26 mmol/L (22-29); Chloride 109 mmol/L (96-108); Cholesterol 142 mg/dL (<200); Estimated Glomerular Filt Rate > 60; Glucose Fasting 111 mg/dL (60-99); HDL Cholesterol 50 mg/dL (>40); LDL Cholesterol Calculated 65 mg/dL (<100); Potassium 4.5 mmol/L (3.3-5.1); Sodium 142 mmol/L (135-145); Total Protein 7.6 g/dL (6.5-8.0); Triglycerides 137 mg/dL (<150)
== END 2024-03-30 07:31 | disposition home or self-care (01) ==
LOC: HO.LAB 07:30
PROVIDERS: PCP Physician Assistant; Visit Provider Physician Assistant
DX: I42.9 Cardiomyopathy, unspecified (principal); E78.2 Mixed hyperlipidemia; R73.09 Other abnormal glucose
CPT/HCPCS: 36415; 80053; 80061; 83036; 85027

== ENCOUNTER → 2024-04-11 14:49 | Outpatient (REF) | payer OTHER, SELFPAY ==
--- NOTE | 2024-04-11 14:52 | CA_ITS ---
Transthoracic Echocardiogram Patient (Last, First, Middle): Sean Bush, Gender: Male Date of : 1975 Age: 49 Procedure Date: 04/11/2024 Procedure Type: Transthoracic Echocardiogram Location: OP Height: 180.34 cm Weight: 87.09 kg BSA: 2.07 m2 Heart Rate: bpm BP: 122 / 70 mmHg Relief Operator: Referring MD: Coretta MARCELINO Symptoms: I50.20 HFrEF HYPERLIPIDEMIA E78.5 I47.20 VENTRICULAR TACHY Study Quality: Adequate ECG Rhythm: Sinus Conclusions: - Moderately increased left ventricular cavity size. - The left ventricular systolic function is severely decreased. The visually estimated ejection fraction is between 20-25%. - Prominent trabeculae at the apex, suggestive of non-compaction. - There is mild aortic valve regurgitation. Findings Left Ventricle Moderately increased left ventricular cavity size. There is normal left ventricular wall thickness. The left ventricular systolic function is severely decreased. The visually estimated ejection fraction is between 20 25%. There is severe global hypokinesis. Diastolic function is normal for age. Prominent trabeculae at the apex, suggestive of non-compaction. Right Ventricle Mildly increased right ventricular cavity size. There is normal right ventricular systolic function. There is an ICD wire seen in the right ventricle. Atria The left atrium is mildly dilated. The right atrium is normal in size. Aortic Valve The aortic valve was not well visualized. There is no aortic valve stenosis. There is mild aortic valve regurgitation. Mitral Valve The mitral valve appears normal. There is trace mitral valve regurgitation. There is no mitral valve stenosis. Pulmonic Valve The pulmonic valve is likely normal. Tricuspid Valve There is mild tricuspid valve regurgitation. There is no evidence of pulmonary hypertension. Great Vessels The asc aorta is normal in size. Venous The inferior vena cava is normal in size and collapses greater than 50% with inspiration. Pericardium/Pleural There is no evidence of pericardial effusion. Prior Study Comparison No significant change compared to prior study dated: 11/01/2020. On review of prior images, no significant change. Measurements 2D Linear Measurements IVSd: 0.90 0.6-0.9/0.6-1.0 cm LVIDd: 6.16 3.9-5.3/4.2-5.9 cm LVIDd Index: 2.98 2.4-3.2/2.2-3.1 cm/m2 LVIDs: 5.67 2.0-3.6 cm LVPWd: 0.91 0.7-1.1 cm Ao Root: 3.40 2.1-3.5 cm LA Diam: 3.60 2.7-3.8/3.0-4.0 cm LAIDs Index: 1.74 1.5-2.3 cm/m2 LV Mass: 284.21 67-162/88-224 g LV Mass Index: 137.30 43-95/49-115 g/m2 LVOT Diam: 2.60 3.0+(-)1.3 cm 2D Systolic Function EF 4C: 25.10 >55% EF 2C: 37.70 >55% EF BiP: 30.20 >55% Mitral Valve MV Pk E: 0.64 MV PK A: 0.51 MV Decel Time: 176.00 E/A: 1.30 E'Lateral: 6.74 E'Medial: 6.64 E/E' Med: 9.60 E/E' Lat: 9.50 PHT: 51.00 MVA PHT: 4.31 Decel Leake: 3.62 Aortic Valve AoV Pk Kaden: 1.39 AoV Mn Kaden: 0.93 AoV VTI: 0.32 AoV Pk Grad: 8.00 Aov Mn Grad: 4.00 HOLLI Cont.VTI: 3.16 AI Pk Kaden: 4.47 AI Leake: 2.18 LVOT LVOT Pk Kaden: 0.87 LVOT Mn Kaden: 0.57 LVOT VTI: 0.19 LVOT Pk Grad: 3.00 LVOT Mn Grad: 2.00 LVOT Diam: 2.60 LVOT Area: 5.31 Diastolic Function MV Pk E: 0.64 MV Pk A: 0.51 E/A: 1.30 E'Medial: 6.64 E/E' Med: 9.60 E' Laterial: 6.74 E/E' Lat: 9.50 Right Ventricle TAPSE (mm): 19.00 TVS' Kaden: 11.00 Tricuspid Valve TR Pk Kaden: 2.50 TR Pk Grad: 25.00 RA Press: 3.00 RVSP: 28.00 Great Vessels Aorta Ao Root-2D: 3.40 2.0-3.7 cm Ao Asc: 3.30 2.1-3.4 cm Pulmonary Valve PV Pk Kaden: 1.27 Peak PV Grad: 6.00 Updated in Other Vendor System with Status of Final Gerardo Ortiz MD electronically signed on 04/12/2024 4:22:07 PM with status of Final
== END ==
LOC: HO.CARD 14:49
PROVIDERS: PCP Physician Assistant; Visit Provider Physician Assistant
DX: I47.20 Ventricular tachycardia, unspecified (principal); I42.8 Other cardiomyopathies
CPT/HCPCS: 93306

== ENCOUNTER → 2024-04-11 14:52 | Outpatient (BNV) | payer OTHER, SELFPAY | PROVIDERS: PCP Physician Assistant; Visit Provider Internal Medicine | DX: I42.8 Other cardiomyopathies (principal); I35.1 Nonrheumatic aortic (valve) insufficiency | CPT/HCPCS: 93306 ==

== ENCOUNTER 2024-05-09 07:00 | Outpatient (REF) | payer OTHER, SELFPAY ==
[2024-05-09 08:02] LABS: Anion Gap 13 (12-20); Blood Urea Nitrogen 15 mg/dL (9-16); Calcium 9.1 mg/dL (8.4-10.2); Carbon Dioxide 23 mmol/L (22-29); Chloride 107 mmol/L (96-108); Estimated Glomerular Filt Rate > 60; Glucose Random 112 mg/dL (60-115); Potassium 4.2 mmol/L (3.3-5.1); Sodium 139 mmol/L (135-145)
== END 2024-05-09 07:01 | disposition home or self-care (01) ==
LOC: HO.LAB 07:00
PROVIDERS: PCP Physician Assistant; Visit Provider Nurse Practitioner Acute Care
DX: I50.20 Unspecified systolic (congestive) heart failure (principal)
CPT/HCPCS: 36415; 80048

== ENCOUNTER 2024-11-23 08:39 | Outpatient (AMB) | payer OTHER, SELFPAY ==
--- OUTSIDE RECORDS SUMMARY | 2024-11-23 08:59 | XMS_ITS | Clinical Summary ---
Author Organization [address] [place] [address] [place] [phone] Phone Care Team Providers Care Certified Indoor Environmentalist Name Role Phone Tyler Davies Primary Care Provider Allergies Active Allergy Reactions Criticality Noted Date Comments Grass Pollen-Red Top, Standard 09/20 Other 09/20/2020 Tree Extract Medications rosuvastatin (CRESTOR) 20 mg tablet TAKE 1 TABLET BY MOUTH DAILY 10/26/2023 Active carvediloL (COREG) 25 mg tablet Take 1 Tablet by mouth 2 times daily. Taken with 0.5 tablet of the 6.25 mg bid Active LORazepam (ATIVAN) 1 mg tablet Take 1 Tablet by mouth every 6 hours as needed for Anxiety for up to 7 days. 05/15/2022 Active sacubitriL-vals nahomi (Entresto) 24-26 mg per tablet TAKE 1 TABLET BY MOUTH TWICE DAILY 60 tablet 5 08/22/2024 Active Hospital, Clinic, or Other Facility Administered Medication Ordered Dose Route Frequency Start Date End Date Status perflutren lipid microsphere (DEFINITY) 1.3 mL in sodium chloride 0.9% 8.7 mL injectionIndications:HFrEF (heart failure with reduced ejection fraction) (CMS/HCC V24, CMS/HCC V28) 10 mL IV Once 11/02/2024 11/02/2024 Ended Active Problems Problem Noted Date Diagnosed Date Ventricular septal defect (VSD) 08/25/2024 Overview (08/25/2024): May [address] Neo Hand, with reduction in ejection fraction to 30%, he underwent VSD repair, as well as closure of patent foramen ovale, operative technique also addressed tricuspid regurgitation, posterior annularplasty, note reads obliterating the posterior leaflet postprocedural echo -demonstrated successful closure of VSD and ASD, and no tricuspid regurgitation. ASD (atrial septal defect) 08/25/2024 HFrEF (heart failure with re duced ejection fraction) (CMS/HCC V24, CMS/HCC V28) 04/05/2024 Hyperlipidemia 04/05/2024 Assessment & Plan (05/25/2024 2:27 PM EST): Continue current dose of statin. He was successful losing some weight. Continue healthy diet. Ventricular fibrillation (CMS/HCC V24, CMS/[facility] V 28) 04/13/2022 Overview (05/04/2024): History of left ventricular noncompaction. 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 Prior CTA showed normal coronary disease. ICD in place. Last Assessment & Plan: This patient did have an episode of ventricular fibrillation back in March. As I noted this past Wednesday he was not feeling well. Around 9 PM he did have 18 beats of VT. However he was feeling poorly before this happened so I do not think that that was related to his ventricular tachycardia. He is very anxious about this and is worried that this is going to recur. I will discuss this with Dr. Orantes. He given his young age I be reluctant to start him on amiodarone. Not clear if sotalol will be another option I will discuss this with him. Did have blood work back in April at that time his potassium and magnesium level were normal. He is also going to get genetic testing done. 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 If EF persistently reduced, plan for transition of lisinopril to Entresto, titration to maximum tolerated doses of this send carvedilol, addition of SGLT2 inhibitor. No current diuretic requirement. Single-chamber [employer] ICD, stable burden of nonsustained VT, no recent therapies. As described episode in January sinus tach versus an atrial arrhythmia, monitor zone decreased 140 at this visit, we will continue remote monitoring. He is aware that he should not participate in competitive sports, Assessment & Plan (05/25/2024 2:26 PM EST): Sean had a decrease in his LVEF on the last echocardiogram and has started Entresto. His blood pressure is marginal and I am going to have him drop the 3.125 dose of Coreg which she had been taking. He will take his home blood pressure and if the systolic does not reach 100 or above we will try and go to 49/51 by starting with 49/50 1 in the morning and . He is following a very low sodium diet reliably. He has lost some weight which is certainly helpful. I do not feel we can add spironolactone or an SGLT2 inhibitor at this point. I did talk to him about potentially referring to a heart transplant center for evaluation. Certainly he has no significant heart failure at this point and would not need to be listed but beginning the conversation I do think is useful. Continue to monitor VT burden through ICD. 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 He has a [employer] ICD in place and has had frequent ventricular ectopy with PVCs, nonsustained VT and some VT requiring ICD therapy with ATP. He had an ICD shock due to ventricular fibrillation in March 2022. His carvedilol was increased at that time with a reasonable response. He had a prior CT angiogram that showed minimal coronary disease and a mild bridge of the LAD very distally in the apex. He has been on carvedilol with increasing doses along with a small dose of lisinopril. Last Assessment & Plan: Primary continues to have episodes of nonsustained ventricular tachycardia. These are generally only minimally symptomatic or asymptomatic. We will continue with his beta-abi and we will reassess his LV function. If his LV function is lower I will try Entresto over lisinopril given the 20% reduction in arrhythmias in the Paradigm trial. We discussed the pros and cons of various and arrhythmic agents and will continue to monitor with his ICD. His ICD is working well with 11 years of battery longevity. There are normal lead impedances, capture thresholds and sensing. Will continue routine quarterly remote device interrogations. Assessment & Plan (05/25/2024 2:26 PM EST): Modest burden of nonsustained ventricular tachycardia with no device therapy required. Continue to monitor for any longer runs or device therapy in which case we will consider an antiarrhythmic agent. Encounters Date Type Department Care Team Description 11/21/2024 Telephone [facility] [address] [facility] [address] [place] [address] Tyler Davies PA Medical Records 11/17/2024 12:20 PM EDT Ancillary Procedure [facility] - [address] [place] [address] 11/15/2024 Telephone [facility] - [address] [place] [address] Shalonda Robison NP Results 11/02/2024 8:00 AM EDT Ancillary Procedure [facility] - [address] [place] [address] HFrEF (heart failure with reduced ejection fraction) (CMS/HCC V24, CMS/HCC V28) 10/31/2024 10:35 AM EDT Ancillary Procedure [facility] - [address] [place] [address] 10/27/2024 Telephone [facility] [address] [facility] [address] [place] [address] Tyler Davies PA Medical Records 10/27/2024 Telephone [facility] - [address] [place] [address] Jerardo Orantes MD Records 10/24/2024 10:55 AM EDT Ancillary Procedure [facility] - [address] [place] [address] 10/12/2024 10:40 AM EDT Ancillary Procedure [facility] - [address] [place] [address] 09/29/2024 Lab [facility] - [address] [place] [address] Jerardo Orantes MD HFrEF (heart failure with reduced ejection fraction) (CMS/HCC V24, CMS/HCC V28) 09/22/2024 Lab [facility] - [address] [place] [address] Jerardo Orantes MD HFrEF (heart failure with reduced ejection fraction) (CMS/HCC V24, CMS/HCC V28) 09/15/2024 11:35 PM EDT Ancillary Procedure [facility] - [address] [place] [address] 09/15/2024 8:05 PM EDT Ancillary Procedure [facility] - [address] [place] [address] 09/15/2024 5:40 PM EDT Ancillary Procedure [facility] - [address] [place] [address] 09/15/2024 Lab [facility] - [address] [place] [address] Jerardo Orantes MD HFrEF (heart failure with reduced ejection fraction) (CMS/HCC V24, CMS/HCC V28) 09/08/2024 Lab [facility] - [address] [place] [address] Jerardo Orantes MD HFrEF (heart failure with reduced ejection fraction) (CMS/HCC V24, CMS/HCC V28) 09/01/2024 Lab [facility] - [address] [place] [address] Jerardo Orantes MD HFrEF (heart failure with reduced ejection fraction) (CMS/HCC V24, CMS/HCC V28) 08/29/2024 11:25 AM EDT Ancillary Procedure [facility] - [address] [place] [address] 08/25/2024 Lab [facility] - [address] [place] [address] Jerardo Orantes MD HFrEF (heart failure with reduced ejection fraction) (CMS/HCC V24, CMS/HCC V28) 08/24/2024 1:40 PM EDT Office Visit [facility] - [address] [place] [address] Shalonda Robison NP HFrEF (heart failure with reduced ejection fraction) (CMS/HCC V24, CMS/HCC V28) (Primary Dx); Ventricular septal defect (VSD) from Last 3 Months Social History Tobacco Use Types Packs/Day Years Used Date Smoking Tobacco: Never Smokeless Tobacco: Never Alcohol Use Standard Drinks/Week Comments Yes 0 (1 standard drink = 0.6 oz pur e alcohol) Sex and Gender Information Value Date Recorded Sex Assigned at Not on file Legal Sex Male 7:36 AM EST Gender Identity Not on file Sexual Orientation Not on file Obstetrics History Last Filed Vital Signs Vital Sign Reading Time Taken Comments Blood Pressure 114/68 11/02/2024 8:53 AM EDT Pulse 74 08/24/2024 1:27 PM EDT Temperature - - Respiratory Rate - - Oxygen Saturation 98% 08/24/2024 1:27 PM EDT Inhaled Oxygen Concentration - - Weight 91.2 kg (201 lb) 11/02/2024 8:53 AM EDT Height 180.3 cm (5' 11 ) 11/02/2024 8:53 AM EDT Body Mass Index 28.03 11/02/2024 8:53 AM EDT Plan of Treatment Health Maintenance Due Date Last Done Comments Hepatitis B Vaccines (1 of 3 - 19+ 3-dose series) 1995 04/20/2016, 11/18/2015, 10/18/2015 Cholesterol Screening (Lipid Panel) 05/23/2022 Colorectal Cancer Screening: Colonoscopy 05/23/2022 Depression Screening 05/23/2022 HIV Screening 05/23/2022 Hepatitis C Screening 05/23/2022 Social Influencers of Health Screening 05/23/2022 Hypertension/CHF/CAD Annual BMP Blood Test 01/11/2024 COVID-19 Vaccine ( season) 2024 06/02/2021, 06/24/2020, 06/03/2020 DTaP,Tdap,and Td Vaccines (2 - Td or Tdap) 05/11/2028 05/11/2018 Influenza Vaccine Completed 03/16/2024, , 03/31/2022, Additional history exists HIB Vaccines Aged Out No longer eligi ble based on patient's age to complete this topic HPV Vaccines Aged Out No longer eligi ble based on patient's age to complete this topic Hepatitis A Vaccines Aged Out No long er eligible based on patient's age to complete this topic IPV Vaccines Aged Out No longer eligi ble based on patient's age to complete this topic MMR Vaccines Aged Out No longer eligi ble based on patient's age to complete this topic Meningococcal ACWY Vaccine Aged Out N o longer eligible based on patient's age to complete this topic Meningococcal B Vaccine Aged Out No l onger eligible based on patient's age to complete this topic Pneumococcal Vaccine: Pediatrics (0 to 5 Years) and At-Risk Patients (6 to 64 Years) Aged Out No longer eligible based on patient's age to complete this topic RSV Immunization Patients Under 20 months Aged Out No longer eligible based on patient's age to complete this topic Varicella Vaccines Aged Out No longer eligible based on patient's age to complete this topic Medical Devices Implanted Type Area Tribunal Member Device Identifier Shelf Expiration Date Model / Serial / Lot Bsci-[id number] Implanted:06/14 (Quantity not on file) Cardiac ICD [employer] CARD RHYTHM MGMT [id number] / [id number] / Procedures Procedure Name Priority Date/Time Associated Diagnosis Comments CARDIAC DEVICE CHECK- REMOTE- MURJ Routine 11/17/2024 12:16 PM EDT TRANSTHORACIC ECHOCARDIOGRAM (TTE) COMPLETE W/ CONTRAST Routine 11/02/2024 9:03 AM EDT HFrEF (heart failure with reduced ejection fraction) (CMS/HCC V24, CMS/HCC V28) CARDIAC DEVICE CHECK- REMOTE- MURJ Routine 10/31/2024 10:30 AM EDT CARDIAC DEVICE CHECK- REMOTE- MURJ Routine 10/24/2024 10:52 AM EDT CARDIAC DEVICE CHECK- REMOTE- MURJ Routine 10/12/2024 10:36 AM EDT CARDIAC DEVICE CHECK- REMOTE- MURJ Routine 09/15/2024 11:34 PM EDT CARDIAC DEVICE CHECK- REMOTE- MURJ Routine 09/15/2024 8:01 PM EDT CARDIAC DEVICE CHECK- REMOTE- MURJ Routine 09/15/2024 5:38 PM EDT CARDIAC DEVICE CHECK- REMOTE- MURJ Routine 08/29/2024 11:20 AM EDT ECG 12-LEAD Routine 08/24/2024 2:59 PM EDT HFrEF (heart failure with reduced ejection fraction) (CMS/HCC V24, CMS/HCC V28) from Last 3 Months Results * Cardiac device check - Remote- MURJ (11/17/2024 12:16 PM EDT) Only the most recent of8 resultswithin the time period is included. Date Time Interrogation Session [id number] CV DEVICE CHECK Type Interrogation Session Remote Scheduled CV DEVICE CHECK Implantable Pulse Generator Tribunal Member BSX CV DEVICE CHECK Implantable Pulse Generator Type ICD CV DEVICE CHECK Implantable Pulse Generator Model D150 CV DEVICE CHECK Implantable Pulse Generator Serial Number [id number] CV DEVICE CHECK Implantable Pulse Generator Implant Date [id number] CV DEVICE CHECK Battery Remaining Percentage 100.00 CV DEVICE CHECK Battery Remaining Longevity 114.0 CV DEVICE CHECK Battery Status Beginning of Service CV DEVICE CHECK Capacitor Charge Time 11.300 CV DEVICE CHECK Carlos Statistic RV Percent Paced 0.00 CV DEVICE CHECK Lead Channel Sensing Intrinsic Amplitude 7.400 CV DEVICE CHECK Lead Channel Setting Sensing Sensitivity 0.60 CV DEVICE CHECK Lead Channel Impedance Value 367 CV DEVICE CHECK Lead Channel Setting Pacing Amplitude 2.000 CV DEVICE CHECK Lead Channel Setting Pacing Pulse Width 0.4 CV DEVICE CHECK Carlos Setting Mode (NBG Code) VVI CV DEVICE CHECK Carlos Setting Lower Rate Limit 40 CV DEVICE CHECK Therapy Statistic Recent Shocks Delivered 0 CV DEVICE CHECK Therapy Statistic Recent Shocks Aborted 0 CV DEVICE CHECK Therapy Statistic Recent ATP Delivered 0 CV DEVICE CHECK Shock Measured Impedance 73 CV DEVICE CHECK Zone Setting Type Category VF CV DEVICE CHECK Rate 220 CV DEVICE CHECK Therapies Burst,31J,41J,41J x 6 CV DEVICE CHECK Zone Setting Status On CV DEVICE CHECK Zone ID 1 CV DEVICE CHECK Zone Setting Type Category VT CV DEVICE CHECK Rate 170 CV DEVICE CHECK Therapies 2 x Burst,2 x Burst+Scan,31J,41 J,41J x 4 CV DEVICE CHECK Zone Setting Status On CV DEVICE CHECK Zone ID 2 CV DEVICE CHECK Zone Setting Type Category VT CV DEVICE CHECK Rate 140 CV DEVICE CHECK Zone Setting Status Monitor CV DEVICE CHECK Zone ID 3 CV DEVICE CHECK Date of Service 2024-11-25 CV DEVICE CHECK Anatomical Region Laterality Modality Device Interroga tion 11/15/2024 1:42 AM EDT Impressions 11/17/2024 10:17 AM EDT Normal Remote: No Events * Normal Device Function * Alerts or events: None * Battery: Battery is at 100%, 9.50 yrs * Sensing, impedance and thresholds reviewed * Programmed parameters reviewed * Presenting rhythm reviewed * Heart Rate Histograms reviewed * No significant changes noted Narrative Procedure Note Jerardo Orantes MD - 11/17/2024 IMPRESSION: Normal Remote: No Events * Normal Device Function * Alerts or events: None * Battery: Battery is at 100%, 9.50 yrs * Sensing, impedance and thresholds reviewed * Programmed parameters reviewed * Presenting rhythm reviewed * Heart Rate Histograms reviewed * No significant changes noted Jerardo Orantes MD CV IMPLANTABLE CARDIAC DEVICE PROCEDURES Final Result * (ABNORMAL) TRANSTHORACIC ECHOCARDIOGRAM (TTE) COMPLETE W/ CONTRAST (11/02/2024 9:03 AM EDT) LV EDV (A2C) 235 mL CV PACS LV EDV (A4C) 211 mL CV PACS LV Diastolic Volume (BP) 231(A) 62 - 150 mL CV PACS LV ESV (A2C) 126 mL CV PACS LV ESV (A4C) 125 mL CV PACS LV Systolic Volume (BP) 126(A) 21 - 61 mL CV PACS IVSD 0.9 0.6 - 1.0 cm CV PACS LVIDD 5.9(A) 4.2 - 5.8 cm CV PACS LVIDS 5.3(A) 2.5 - 4.0 cm CV PACS LVOT Diameter 2.4 cm CV PACS LVOT Mean Kaden 0.4 m/s CV PACS LVOT Mean Grad 1 mmHg CV PACS LVOT Peak VTI 13.5 cm CV PACS LVOT Peak Kaden 0.6 m/s CV PACS LVOT Peak Gradient 1 mmHg CV PACS LVPWD 0.8 0.6 - 1.0 cm CV PACS MV E' Tissue Velocity Lateral 10 cm/s CV PACS MV E' Tissue Velocity Septal 5 cm/s CV PACS Ejection Fraction (A2C) 46 % CV PACS Ejection Fraction (A4C) 41 % CV PACS Ejection Fraction (BP) 46 % CV PACS LVOT Area 4.5 cm2 CV PACS LVOT Stroke Volume 61 mL CV PACS Left Atrium Minor [place] 5.7 cm CV PACS Left Atrium Major [place] 6.6 cm CV PACS LA Area Sys (A2C) 22 cm2 CV PACS LA Area Sys (A4C) 19 cm2 CV PACS LA Volume (BP) 56 mL CV PACS RA Area 14.2 cm2 CV PACS RA 2D Volume 31 mL CV PACS AV Regurgitation PHT 705 ms CV PACS AR Max Velocity 4.1 m/s CV PACS AV Peak Kaden 1.3 m/s CV PACS AV Peak Gradient 6 mmHg CV PACS AV Mean Gradient 3 mmHg CV PACS Ao VTI 25.2 cm CV PACS AV Area Continuity Equation 2.4 cm2 CV PACS AV Area Peak Velocity 2.2 cm2 CV PACS Aortic Sinus Valsalva 3.6 cm CV PACS Ascending Aorta 3.1 cm CV PACS IVC Proximal 2.0 cm CV PACS MV Deceleration [place] 3.1 m/s2 CV PACS E Wave Deceleration Time 213 119 - 242 ms CV PACS MV PHT 62 ms CV PACS MV Peak A Kaden 0.72 m/s CV PACS MV Peak E [place]aden 0.66 m/s CV PACS MV Area PHT 3.6 cm2 CV PACS PV Acceleration Time 124 ms CV PACS RV Diastolic Basal Dimension 3.3 2.5 - 4.1 cm CV PACS RV S' 10 cm/s CV PACS TAPSE 17 mm CV PACS TR Peak Velocity 2.23 m/s CV PACS TR Peak Gradient 20 mmHg CV PACS LV ESV Index (A4C) 59 mL/m2 CV PACS LV EDV Index (A4C) 100 mL/m2 CV PACS E/E' Ratio Septal 13 CV PACS E/E' Ratio Averaged 10 CV PACS LVOT Stroke Index 29 mL/m2 CV PACS Relative Wall Thickness ratio 0.27 CV PACS LVOT:AV VTI Index 0.54 CV PACS FS 10 % CV PACS LV Mass 2D 195 g CV PACS Ascending Aorta Index 1.47 cm/m2 CV PACS LVOT flow 181 mL/s CV PACS RA 2D Volume Index 15 mL/m2 CV PACS HOLLI Index (VTI) 1.15 cm2/m2 CV PACS HOLLI Index (Pk Kaden) 1.04 cm2/m2 CV PACS LVIDD Index 2.80 cm/m2 CV PACS LVIDS Index 2.51 cm/m2 CV PACS AV Velocity Ratio 0.46 CV PACS E/A Ratio 0.9 CV PACS E/E' Ratio Lateral 7 CV PACS LV Systolic Volume Index (BP) 60 mL/m2 CV PACS LV Diastolic Volume Index (BP) 109 mL/m2 CV PACS LA Volume Index (BP) 27 mL/m2 CV PACS LV Mass Index 2D 92 g/m2 CV PACS LV EDV Index (A2C) 111 mL/m2 CV PACS LV ESV Index (A2C) 60 mL/m2 CV PACS BSA 2.14 m2 CV PACS Right Ventricular Peak Systolic Pressure 23 mmHg CV PACS Est. RA Pressure 3 mmHg CV PACS Anatomical Region Laterality Modality Ultrasound Narrative 11/03/2024 3:57 PM EDT ?Left??Ventricle: Systolic function is moderately decreased with an ejection fraction of 35-40% and global hypokinesis. ??There are heavy trabeculation in left ventricular apical region, consistent with noncompaction cardiomyopathy. ?Right ventricle cavity is normal. Right ventricular systolic function is normal. ?Mild mitral regurgitation. ?Mild aortic valve regurgitation. ?The right ventricular systolic pressure is normal. Left Ventricle Left ventricle cavity is dilated in systole and diastole. Wall thickness is normal. Systolic function is moderately decreased with an ejection fraction of 35-40%. There are heavy trabeculation in left ventricular apical region. Global LV hypokinesis is present. There is Grade I (mild) diastolic dysfunction. Right Ventricle Right ventricle cavity appears normal. Systolic function is normal. ICD wire seen in right ventricle. Left Atrium Left atrium cavity size is normal. Right Atrium Right atrium cavity is normal. ICD wire seen in right atrium. IVC/SVC RA pressures is estimated to be 3 mmHg (IVC diameter <21 mm and decreases >50% during inspiration). Mitral Valve The leaflets are mildly thickened. There is mild regurgitation. There is no evidence of mitral valve stenosis. Tricuspid Valve Tricuspid valve structure is normal. There is trace regurgitation. The right ventricular systolic pressure is normal. Aortic Valve Aortic valve appears trileaflet. There is mild regurgitation. There is no evidence of aortic valve stenosis. Pulmonic Valve Pulmonic valve structure is normal. There is trace pulmonic valve regurgitation. There is no evidence of pulmonic valve stenosis. Ascending Aorta The aorta appears normal in size. Transverse aorta not well visualized. Pericardium Pericardium appears normal. There is no pericardial effusion. Study Details Overall the study quality was adequate. Definity contrast was given to enhance imaging. us Shalonda Robison NP CV ECHO PROCEDURES Final Res ult * ECG 12 lead (08/24/2024 2:59 PM EDT) Ventricular Rate ECG 65 BPM GEMUSE Atrial Rate 65 BPM GEMUSE P-R Interval 178 ms GEMUSE QRS Duration 102 ms GEMUSE Q-T Interval 376 ms GEMUSE QTc 391 ms GEMUSE P Wave [place] -4 degrees GEMUSE R [place] 9 degrees GEMUSE T [place] -95 degrees GEMUSE ECG Interpretation Normal sinus rhythm Nonspecific T wave abnormality When compared with ECG of 25-MAY-2024 13:50, No significant change was found Confirmed by JUSTINA TILLMAN ([id number]) on 08/31/2024 4:10:31 AM GEMUSE 08/24/2024 1:42 PM EDT 08/31/2024 4:10 AM EDT us Shalonda Robison LOCKS INSPECTOR ECG ORDERABLES Edited Resul t - Final GEMUSE from Last 3 Months Insurance [employer] [facility] Care Teams Certified Indoor Environmentalist Relationship Specialty Start Date End Date Tyler Davies PA PCP - General Physician Brick Machine Operator 08/23/24
--- NOTE | 2024-11-23 09:09 | A.OFFPC_ITS ---
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: Not Required per policy Accompanied by: Self / Same As Patient Allergies montelukast [From Singulair] Allergy (Unknown, Verified 11/23/24 09:22) GERD Medication List - Last Reconciled 11/23/24 by Tyler Davies PA-C carvedilol 25 mg PO BID 90 days lisinopril 2.5 mg (1/2 x 5 mg) PO BID rosuvastatin 20 mg PO DAILY 90 days sacubitril-valsartan 24-26 mg (Entresto) 1 tab PO BID 30 days Tobacco use date assessed: 11/23/24 Dental Screening Dental Screen Date: 11/23/24 Did you have a dental visit in the last 12 months?: Yes Did you have a dental problem in the last 6 months where you did not have access to dental care?: No Was dental information given to patient?: Patient has dentist HPI annual exam HPI Details Sean is a 49 -year-old male here today for an annual physical. Patient's past medical history significant for essential hypertension, history ventricular tachycardia requiring ICD implantation, dilated cardiomyopathy, hyperlipidemia. ? .. ? Cardiomyopathy, history of ventricular tachycardia requiring ICD Still followed by Cardiology q.6 months. Patient denies any chest pains, palpitations, dizziness.? He did have his ICD discharge and March of 2020 to, followed up with Recruitment And Outreach Assistant whom believes it was in the setting of mild dehydration otherwise no further symptoms. -->Of note blood pressure on the lower s emely today. Patient asymptomatic. We attribute his lower blood pressures to a small degree of dehydration. He continues on Entresto, most recent echocardiogram showing improved EF at 30- 35% Otherwise has no signs and symptoms of Congestive heart failure. ? .. ? HTN: Has been stable , currently on Entresto and carvedilol in managing his blood pressure. ? . ? .. ? VAccine: UTD with FLu and tetanus.? Also has gotten COVID vaccine, up-to-date with flu vaccine Colon cancer screening: done in 2023- clean- repeat 10 yrs [facility] Surgical History History of placement of internal cardiac defibrillator History of cardiac catheterization History of open heart surgery Family History Father No problems noted. 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 1. Little interest or pleasure in doing things: not at all 2. Feeling down, depressed, or hopeless: not at all 3. Trouble falling or staying asleep, or sleeping too much: not at all 4. Feeling tired or having little energy: not at all 5. Poor appetite or overeating: not at all 6. Feeling bad about yourself - or that you are a failure or have let yourself or your family down: not at all 7. Trouble concentrating on things, such as reading the newspaper or watching television: not at all 8. Moving or speaking so slowly that other people could have noticed. Or the opposite - being so fidgety or restless that you have been moving around a lot more than usual: not at all 9. Thoughts that you would be better off or of hurting yourself in some way: not at all Total score: 0 Depression Screening Interpretation: Negative Depression Screening Done: Yes 24879 - PHQ-9 Billing: Yes Source: Developed by Drs. Juan Griffin, Jadyn Toribio, Zohaib Curiel and colleagues, with an educational ewa from [employer]. Thrive Questionnaire Date Thrive assessed: 11/23/24 I am a: Patient What is your living situation today?: I have a steady place to live Within the past 12 months, did the food you bought not last and you didn't have the money to get more?: Never true Within the past 12 months, did you worry whether your food would run out before you got money to buy more?: Never true Do you have trouble paying for medicines?: No Do you have trouble getting transportation to medical appointments?: No Do you have trouble paying your heating and electricity bill?: No Do you have trouble taking care of your child, family member or friend?: No Do you have trouble with day-to-day activities such as bathing, preparing meals, shopping, managing finances, etc.?: No Are you currently unemployed and looking for a job?: No Are you interested in more education?: No Please select the resources that you would like help with: None Currently or been in a relationship where the following occur: No concerns reported THRIVE Score: 0 AUDIT C Alcohol Use Questionnaire (AUDIT-C) 1. How often do you have a drink containing alcohol?: 2-4 times a month 2. How many drinks containing alcohol do you have on a typical day when you are drinking?: 1 or 2 3. How often do you have six or more drinks on one occasion?: Never Total Score: 2 NOBLE-7 AMB Questionnaire NOBLE-7 Date NOBLE - 7 assessed: 11/23/24 Feeling nervous, anxious, or on edge: 0 = Not at all Not being able to stop or control worryin = Not at all Worrying too much about different things: 0 = Not at all Trouble relaxin = Not at all Being so restless that it is hard to sit still: 0 = Not at all Becoming easily annoyed or irritable: 0 = Not at all Feeling afraid as if something awful might happen: 0 = Not at all Total NOBLE-7 score (0-4 normal; 5-9 mild; 10-14 moderate; 15-21 severe): 0 Source: Developed by Drs. Juan Griffin, Jadyn Toribio, Zohaib Curiel and colleagues, with an educational ewa from [employer] NOBLE-7 Assessment Billing NOBLE-7 Assessment Tool: NOBLE-7 Assessment 06679 Review of Systems Const Denies body aches, Denies chills, Denies excessive sweating, Denies fatigue, Denies fever(s) and Denies headache(s) Eyes Denies blurry vision ENT Denies dysphagia, Denies vertigo, Denies dizziness, Denies headache(s), Denies hearing loss and Denies tinnitus Card Denies chest pain, Denies chest pain with activity, Denies syncope, Denies irr egular heart rhythm and Denies dyspnea Resp Denies chest congestion, Denies cough, Denies hemoptysis, Denies dyspnea and Denies wheezing GI Denies abdominal pain, Denies melena, Denies hematochezia, Denies coffee ground emesis, Denies dysphagia, Denies diarrhea, Denies nausea and Denies vomiting Denies difficulty urinating, Denies dysuria, Denies urinary frequency, Denies urinary hesitancy and Denies urinary urgency Musc Denies arthralgias, Denies limited range of motion, Denies muscle cramps and Denies muscle weakness Skin/Breast Denies rash and Denies skin ulcer Neuro Denies Abnormal speech present, Denies confusion, Denies vertigo, Denies dizziness, Denies syncope, Denies headache(s), Denies memory loss and Denies seizure-like activity Psych Denies anxiety, Denies confusion, Denies depression, Denies memory loss, Denies panic attacks and Denies paranoia Endo Denies excessive sweating, Denies fatigue, Denies flushing, Denies polydipsia and Denies polyuria Aller/Immun Denies wheezing Physical exam (Primary Care) Vital Signs: Last Vital Signs Pulse 71 11/23/24 09:10 BP 102/80 11/23/24 09:10 Pulse Ox 97 11/23/24 09:10 Oxygen Delivery Method Room Air 11/23/24 09:10 BMI result Body Mass Index 27.6 Tobacco/Smoking Status: Tobacco use Status Tobacco use date assessed 11/23/24 11/23/24 09:14 Patient Tobacco Use Status Former Tobacco user 11/23/24 09:14 e-Cigarette/Vaping Use Never Used 11/23/24 09:14 PHQ-9: PHQ-9 Score PHQ-9: Total score 0 11/23/24 09:14 Depression Screening Interpretation: Negative Thrive Assessment: Date of Thrive Assessment Date Thrive assessed 11/23/24 11/23/24 09:14 Currently or been in a relationship where the following occur: No concerns reported Const General: cooperative, comfortable, no acute distress, alert and awake; No confusion Orientation/consciousness: oriented to person, oriented to place, patient oriented x3 and No confusion HENMT Head: Yes normocephalic Ears: external ears normal and TM's normal bilaterally Face and sinus: No sinus tenderness Mouth: Normal oral and palatal mucosa present and tongue normal Teeth and gingiva: dentition normal and gingiva normal Throat: Yes posterior oropharynx normal, Yes tonsils normal and Yes uvula midline Eyes Conjunctivae: conjunctivae normal Sclerae: sclerae normal Pupils: Equal, round and reactive pupils present EOM: EOMs intact bilaterally Direct Ophthalmoscopy: No no photophobia Neck Neck: Yes no lymphadenopathy, No tender and Yes no JVD Thyroid: Thyroid normal Carotids: no bruits Chest Chest palpation & inspection: no tenderness Resp Effort & Inspection: normal respiratory effort, no audible wheezes, not labored and no stridor Auscultation: no crackles, no rales, no rhonchi and no wheezes Cardio Jugular venous distension: no JVD Rate: regular rate, not bradycardic and not tachycardic Rhythm: regular rhythm Bruits: no carotid bruits Peripheral pulses: Peripheral pulses 2+ throughout GI Inspection: Yes normal to inspection, No abdominal wall ecchymosis and No visible herniation Palpation (GI): Soft to palpation, nontender, no guarding, not rigid and No hepatosplenomegaly present Auscultation: normoactive bowel sounds General: Yes no CVA tenderness Back/Spine/Pelvis Back: no CVA tenderness and No back tenderness Cervical Spine: cervical ROM normal Thoracic/Lumbar Spine: thoracic and lumbar spine normal to inspection, straight leg raise negative bilaterally, No thoraco-lumbar ROM limited and No lumbar spi nal tenderness Skin Lesions: no lesions Rashes: no rashes Wounds: no wounds Neuro General: oriented to person, oriented to place, patient oriented x3, CN's II-XI intact bilaterally and No confusion Cranial nerves: Yes Equal, round and reactive pupils present and Yes Normal accommodation reflex present Cognition (Neuro): normal cognition Speech: No Abnormal speech present Gait exam (Neuro): Normal gait present Motor exam (neuro): 5/5 motor strength present throughout Extrem Right upper extremity: full ROM; no cyanosis Left upper extremity: full ROM; no cyanosis Right lower extremity: no edema Left lower extremity: no edema Psych Appearance: grossly normal Mental Status: mental status grossly normal Affect: normal affect Attitude: cooperative Thought process: Normal thought process present Coding Level of Care Code Est Pt Prev Care 40-64y(29229) Diagnoses Annual physical exam Z00.00 Cardiomyopathy, unspecified type I42.9 Cardiomyopathy type: unspecified Mixed hyperlipidemia E78.2 Hyperlipidemia type: mixed hyperlipidemia History of placement of internal cardiac defibrillator Z95.810 Additional Codes NOBLE-7 Assessment Billing - NOBLE-7 Assessment Tool: NOBLE-7 Assessment 57875 ([id number]) PHQ-9 - 52255 - PHQ-9 Billing: Yes ([id number]) Assessment & Plan Assessment & Plan (1) Annual physical exam: Code(s): Z00.00 - Encounter for general adult medical examination without abnormal findings Category: Medical Plan: As per HPI (2) Cardiomyopathy: Code(s): I42.9 - Cardiomyopathy, unspecified Category: Medical Qualifiers: Cardiomyopathy type: unspecified Qualified Code(s): I42.9 - Cardiomyopathy, unspecified Plan: Patient continues to follow Dr. Han foot setter that trended. Most recent echocardiogram showing EF of 30-35% which has been an improvement from previous. He has no overt signs of Congestive heart failure. He continues on Entresto (3) HLD (hyperlipidemia): Code(s): E78.5 - Hyperlipidemia, unspecified Category: Medical Qualifiers: Hyperlipidemia type: mixed hyperlipidemia Qualified Code(s): E78.2 - Mixed hyperlipidemia Plan: Most recent lipid panel showing excellent control of his total cholesterol and LDL. He will continue on atorvastatin 20 mg with goal LDL to be preferable to be below 100. (4) History of placement of internal cardiac defibrillator: Comment: 2019 [facility] Code(s): Z95.810 - Presence of automatic (implantable) cardiac defibrillator Category: Surgical Plan: As above had an ICD implanted in 2019. Continues to strive for healthy lifestyle. Orders: Orders Lipid Panel Today E78.2 - Mixed hyperlipidemia Microalbumin, Random (w Creat) Today I42.9 - Cardiomyopathy, unspecified Complete Blood Count no Diff Today E78.2 - Mixed hyperlipidemia Comprehensive Perry. Panel Fast Today E78.2 - Mixed hyperlipidemia Medications: Refilled sacubitril-valsartan 24-26 mg (Entresto) 1 tab PO BID 30 days 60 tabs 3RF I42.9 - Cardiomyopathy, unspecified carvedilol Takes 31.25 b.i.d. 25 mg PO BID 90 days 180 tabs 2RF I42.9 - Cardiomyopathy, unspecified, Z95.810 - Presence of automatic (implantable) cardiac defibrillator rosuvastatin 20 mg PO DAILY 90 days 90 tabs 1RF E78.2 - Mixed hyperlipidemia
[2024-11-23 09:10] VITALS: BP 102/80; PULSE 71; O2SAT 97; BMI 27.6
== END 2024-11-23 09:43 | disposition home or self-care (01) ==
LOC: HO.HMCH 08:40
PROVIDERS: PCP Physician Assistant; Visit Provider Physician Assistant
DX: Z00.00 Encounter for general adult medical examination without abnormal findings (principal); I42.9 Cardiomyopathy, unspecified; E78.2 Mixed hyperlipidemia; Z95.810 Presence of automatic (implantable) cardiac defibrillator

== ENCOUNTER → 2024-11-23 08:39 | Outpatient (BNVA) | payer OTHER, SELFPAY | PROVIDERS: PCP Physician Assistant; Visit Provider Physician Assistant | DX: Z00.00 Encounter for general adult medical examination without abnormal findings (principal); I10 Essential (primary) hypertension; I42.9 Cardiomyopathy, unspecified; Z95.810 Presence of automatic (implantable) cardiac defibrillator; E78.2 Mixed hyperlipidemia | CPT/HCPCS: 96127 ==

== ENCOUNTER 2025-04-04 07:00 | Outpatient (REF) | payer OTHER, SELFPAY ==
--- OUTSIDE RECORDS SUMMARY | 2025-04-01 18:25 | XMS_ITS | Encounter Summary ---
Author Organization [facility] Address [address] [place] [address] Care Team Providers Care Waterworks Chief Engineer Name Role Phone Tyler Davies Primary Care Provider [phone] Encounter Details Date Type Department Care Team (Late st Contact Info) Description 04/01/2025 6:25 PM EDT Ancillary Procedure [facility] [address] [place] [id number] Arrived Social History Tobacco Use Types Packs/Day Years Used Date Smoking Tobacco: Never Smokeless Tobacco: Never Alcohol Use Standard Drinks/Week Comments Yes 0 (1 standard drink = 0.6 oz pur e alcohol) Sex and Gender Information Value Date Recorded Sex Assigned at Not on file Legal Sex Male 7:36 AM EST Gender Identity Not on file Sexual Orientation Not on file documented as of this encounter Plan of Treatment Not on file documented as of this encounter Procedures Procedure Name Priority Date/Time Associated Diagnosis Comments CARDIAC DEVICE CHECK- REMOTE- MURJ Routine 04/01/2025 6:22 PM EDT documented in this encounter Results * Cardiac device check - Remote- MURJ (04/01/2025 6:22 PM EDT) Date Time Interrogation Session [id number] CV DEVICE CHECK Type Interrogation Session Remote Device Initiated CV DEVICE CHECK Implantable Pulse Generator Office Services Specialist BSX CV DEVICE CHECK Implantable Pulse Generator Type ICD CV DEVICE CHECK Implantable Pulse Generator Model D150 CV DEVICE CHECK Implantable Pulse Generator Serial Number [id number] CV DEVICE CHECK Implantable Pulse Generator Implant Date 20180627 CV DEVICE CHECK Battery Remaining Percentage 93.00 CV DEVICE CHECK Battery Remaining Longevity 102.0 CV DEVICE CHECK Battery Status Beginning of Service CV DEVICE CHECK Capacitor Charge Time 11.300 CV DEVICE CHECK Carlos Statistic RV Percent Paced 0.00 CV DEVICE CHECK Lead Channel Sensing Intrinsic Amplitude 5.100 CV DEVICE CHECK Lead Channel Setting Sensing Sensitivity 0.60 CV DEVICE CHECK Lead Channel Impedance Value 356 CV DEVICE CHECK Lead Channel Setting Pacing [...] 0 CV DEVICE CHECK Shock Measured Impedance 69 CV DEVICE CHECK Zone Setting Type Category VF CV DEVICE CHECK Rate 220 CV DEVICE CHECK Therapies Burst,31J,41J,41J x 6 CV DEVICE CHECK Zone Setting Status On CV DEVICE CHECK Zone ID 1 CV DEVICE CHECK Zone Setting Type Category VT CV DEVICE CHECK Rate 170 CV DEVICE CHECK Therapies 2 x Burst,2 x Burst+Scan,31J,41J ,41J x 4 CV DEVICE CHECK Zone Setting Status On CV DEVICE CHECK Zone ID 2 CV DEVICE CHECK Zone Setting Type Category VT CV DEVICE CHECK Rate 140 CV DEVICE CHECK Zone Setting Status Monitor CV DEVICE CHECK Zone ID 3 CV DEVICE CHECK Date of Service 2025-05-26 CV DEVICE CHECK Anatomical Region Laterality Modality Device Interroga tion 03/30/2025 1:41 AM EDT Impressions 04/01/2025 6:21 PM EDT Non-sustained Ventricular Tachycardia * Stored EGMs are consistent with or suggestive of Non-sustained VT * Total episodes: 1 16 beats Non-sustained Ventricular Tachycardia * Stored EGMs are consistent with or suggestive of Non-sustained VT * Total episodes: 1 12 beats Non-sustained Ventricular Tachycardia * Stored EGMs are consistent with or suggestive of Non-sustained VT * Total episodes: 1 * 13-beats NSVT Normal Remote: With Events * Normal Device Function * Events or Alerts: 2 * Battery: Battery is at 93%, 8.50 yrs * Sensing, impedance and thresholds reviewed * Programmed parameters reviewed * Presenting rhythm reviewed * Heart Rate Histograms reviewed Narrative Procedure Note Shalonda Robison NP - 04/01/2025 IMPRESSION: Non-sustained Ventricular Tachycardia * Stored EGMs are consistent with or suggestive of Non-sustained VT * Total episodes: 1 16 beats Non-sustained Ventricular Tachycardia * Stored EGMs are consistent with or suggestive of Non-sustained VT * Total episodes: 1 12 beats Non-sustained Ventricular Tachycardia * Stored EGMs are consistent with or suggestive of Non-sustained VT * Total episodes: 1 * 13-beats NSVT Normal Remote: With Events * Normal Device Function * Events or Alerts: 2 * Battery: Battery is at 93%, 8.50 yrs * Sensing, impedance and thresholds reviewed * Programmed parameters reviewed * Presenting rhythm reviewed * Heart Rate Histograms reviewed Shalonda Robison MEDIA ASSISTANT CV IMPLANTABLE CARDIAC DEVIC E PROCEDURES Final Result documented in this encounter Visit Diagnoses Not on filedocumented in this encounter Care Teams Waterworks Chief Engineer Relationship Specialty Start Date End Date Tyler Davies PA [address] [place] [address] PCP - General Physician Giant Tire Repairer 02/26/25 documented as of this encounter
--- OUTSIDE RECORDS SUMMARY | 2025-04-04 07:02 | XMS_ITS | Clinical Summary ---
Author Organization [facility] Address [address] [place] [id number] Phone Care Team Providers Care Institutional Nutrition Consultant Name Role Phone Tyler Davies Primary Care Provider + Social History Tobacco Use Types Packs/Day Years Used Date Smoking Tobacco: Never Assessed Education Answer Date Recorded Are you interested in more education? Not on tara e 11/01/2024 Are you concerned about learning? Not on file 11/01/2024 No 11/01/2024 No 11/01/2024 Digital Access Answer Date Recorded No 11/01/2024 No 11/01/2024 Reliable internet access at home? Not on file 11/01/2024 Device with a working camera? Not on file Sex and Gender Information Value Date Recorded Sex Assigned at Not on file Legal Sex Male 1:32 PM EDT Gender Identity Not on file Sexual Orientation Not on file Plan of Treatment Upcoming Encounters Date Type Department Care Team ([facility] st Contact Info) Description 05/14/2025 3:00 PM EST Office Visit [facility] [address] [place] [address] Parrish Gallagher MD [address] [facility] [place] [address] [email or web address] 05/28/2025 2:00 PM EST Appointment [facility] [address] [place] [address] Parrish Gallagher MD [address] [facility] [place] [address] [email or web address] Health Maintenance Due Date Last Done Comments LIPID PANEL 1976 DEPRESSION SCREENING 1988 SMOKING Hx and SMOKELESS TOBACCO SCREENING 1989 HEPATITIS C SCREENING 1994 HIV ONE-TIME SCREENING (18-65 YEARS) 1994 PNEUMOCOCCAL VACCINES (0-49 years) (1 of 2 - PCV) 1995 COLOGUARD 2021 COLONOSCOPY 2021 COLORECTAL CANCER SCREENING 2021 FIT TEST 2021 FOBT 2021 SIGMOIDOSCOPY 2021 VIRTUAL COLONOSCOPY 2021 INFLUENZA VACCINE (#1) 2025 4, 03/31/2023, 03/31/2022, Additional history exists COVID-19 VACCINE (2024- season) 2025 06/02/2021, 06/24/2020, 06/03/2020 Adult Td,Tdap Booster 05/11/2028 05/11/2018 HEPATITIS A VACCINES Aged Out No long er eligible based on patient's age to complete this topic HIB VACCINES Aged Out No longer eligi ble based on patient's age to complete this topic MENINGOCOCCAL VACCINES (ACWY) Aged Out No longer eligible based on patient's age to complete this topic MENINGOCOCCAL VACCINES (B) Aged Out N o longer eligible based on patient's age to complete this topic Medical Devices Not on file Insurance [facility] BENEFITS ADMINISTRATORS [employer] BENEFITS ADMINIST[employer]ATORS [employer]ENEFITS ADMINISTRATORS [employer] BENEFITS ADMINISTRATORS [facility] Care Teams Institutional Nutrition Consultant Relationship Specialty Start Date End Date Tyler Davies PA [address] [place] [address] PCP - General Physician Campus Receptionist 10/27/24 Additional Source Comments The information contained in this document represents components of the legal health record. It is not the complete legal health record.[facility]
--- OUTSIDE RECORDS SUMMARY | 2025-04-04 07:02 | XMS_ITS | Clinical Summary ---
Author Organization [address] [place] [address] [place] [phone] Phone Care Team Providers Care Rental Salesperson Name Role Phone Tyler Davies Primary Care [...] bid Active LORazepam (ATIVAN) 1 mg tablet 05/15/2022 Active sacubitriL-valsa rtan (ENTRESTO) 49-51 mg per tablet Take 1 tablet by mouth 2 (two) times a day. 180 each 3 12/21/2024 Active Active Problems Problem Noted Date Diagnosed Date [...] VSD and ASD, and no tricuspid regurgitation. Assessment & Plan (02/26/2025 1:44 PM EDT): Status post repair with echocardiogram showing no transseptal flow. ASD (atrial septal defect) 08/25/2024 Assessment & Plan (02/26/2025 1:44 PM EDT): Status post successful atrial septal defect repair. HFrEF (heart failure with re duced ejection fraction) (CMS/HCC V24, CMS/HCC V28) 04/05/2024 Assessment & Plan (02/26/2025 1:43 PM EDT): Appears euvolemic on exam today. LV function has improved and remained stable at 35 to 40%. He is tolerating the increased dose of Entresto and will get the labs drawn that we suggested last time he was in. His blood pressure is reasonable today but a I am not sure we will get to the 97 103 dose. We did talk about potentially using spironolactone or an SGLT2 inhibitor but as long as his LVEF is near 40% I would not add any medicines as he is concerned about hypotension and presyncopal symptoms. He will continue a low-sodium diet and monitor his weight closely. We did talk about trying to avoid prolonged episodes in hot tubs or using roller coasters. Hyperlipidemia 04/05/2024 Assessment & Plan (05/25/2024 2:27 PM EST): Continue current dose of statin. He was successful losing some weight. Continue healthy diet. Ventricular fibrillation (CMS/HCC V24, CMS/HCC V 28) 04/13/2022 Overview (05/04/2024): History of [...] SGLT2 inhibitor. No current diuretic requirement. Single-chamber [employer] ICD, stable burden of nonsustained VT, no recent therapies. As described episode in January sinus tach versus an atrial arrhythmia, monitor zone decreased 140 at this visit, we will continue remote monitoring. 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 Continues to have episodes of ventricular tachycardia but the overall burden stays modest and we are trying to avoid adding antiarrhythmic drugs or proceeding to ablation. I will continue to follow closely using remote monitoring the overall burden of VT. Assessment & Plan (05/25/2024 2:26 PM EST): [...] has a noncompaction cardiomyopathy. He has a [employer] ICD in place and has had [...] Encounters Date Type Department Care Team Description 04/01/2025 6:25 PM EDT Ancillary Procedure [facility] [address] [place] [address] Arrived 02/26/2025 12:55 PM EDT Office Visit [facility] [address] [place] [address] Eva Orantes MD Nonsustained ventricular tachycardia (CMS/HCC V24, CMS/HCC V28) (Primary Dx); HFrEF (heart failure with reduced ejection fraction) (CMS/HCC V24, CMS/HCC V28); Left ventricular noncompaction cardiomyopathy (CMS/HCC V24, CMS/HCC V28); Ventricular septal defect (VSD); ASD (atrial septal defect) 02/22/2025 9:40 AM EDT Ancillary Procedure [facility] - [address] [place] [address] 02/22/2025 Telephone [facility] [address] [place] [address] Shalonda Robison NP 02/19/2025 2:00 PM EDT Ancillary Procedure [facility] [address] [place] [address] 01/19/2025 5:00 PM EDT Ancillary Procedure [facility] - [address] [place] [address] from Last 3 Months Social History Tobacco [...] Sign Reading Time Taken Comments Blood Pressure 120/80 02/26/2025 12:56 PM EDT Pulse 59 02/26/2025 12:56 PM EDT Temperature - - Respiratory Rate - - Oxygen Saturation 98% 02/26/2025 12:56 PM EDT Inhaled Oxygen Concentration - - Weight 91.2 kg (201 lb) 02/26/2025 12:56 PM EDT Height 180.3 cm (5' 11 ) 02/26/2025 12:56 PM EDT Body Mass Index 28.03 02/26/2025 12:56 PM EDT Plan of Treatment Health Maintenance Due Date Last Done Comments Colorectal Cancer Screening: Colonoscopy 1976 Hepatitis B Vaccines (1 of 3 - 19+ 3-dose series) 1995 04/20/2016, 11/18/2015, 10/18/2015 Cholesterol Screening (Lipid Panel) 05/23/2022 HIV Screening 05/23/2022 Hepatitis C Screening 05/23/2022 Social Influencers of Health Screening 05/23/2022 Hypertension/CHF/CAD Annual BMP Blood Test 01/11/2024 Depression Screening 06/14/2024 COVID-19 Vaccine ( season) 2025 06/02/2021, 06/24/2020, 06/03/2020 Influenza Vaccine (#1) 2025 , 03/31/2023, 03/31/2022, Additional history exists DTaP,Tdap,and Td Vaccines (2 - Td or Tdap) 05/11/2028 05/11/2018 RSV Immunization Adult Patients (1 - 1-dose 75+ series) 2051 HIB Vaccines Aged Out No longer eligi [...] 5 Years) and At-Risk Patients (6 to 49 Years) Aged Out No longer eligible based on patient's age to complete this topic RSV Immunization Patients Under 20 months Aged Out No longer eligible based on patient's age to complete this topic Varicella Vaccines Aged Out No longer eligible based on patient's age to complete this topic Medical Devices Implanted Type Area Winding Operator Device Identifier Shelf Expiration Date Model / Serial / Lot Bsci-Crm [id number] Implanted:06/14 (Quantity not on file) Cardiac ICD [employer] CARD RHYTHM MGMT [id number] / [id number] / Procedures Procedure Name Priority Date/Time Associated Diagnosis Comments CARDIAC DEVICE CHECK- REMOTE- MURJ Routine 04/01/2025 6:22 PM EDT ECG 12-LEAD Routine 02/26/2025 1:45 PM EDT Nonsustained ventricular tachycardia (CMS/HCC V24, CMS/HCC V28) CARDIAC DEVICE CHECK- REMOTE- MURJ Routine 02/22/2025 9:38 AM EDT CARDIAC DEVICE CHECK- REMOTE- MURJ Routine 02/19/2025 1:59 PM EDT CARDIAC DEVICE CHECK- REMOTE- MURJ Routine 01/19/2025 4:56 PM EDT from Last 3 Months Results * Cardiac device check - Remote- MURJ (04/01/2025 6:22 PM EDT) Only the most recent of4 resultswithin the time period is included. Date Time Interrogation Session [id number] CV DEVICE CHECK Type Interrogation Session Remote Device Initiated CV DEVICE CHECK Implantable Pulse Generator Winding Operator BSX CV DEVICE CHECK Implantable Pulse Generator Type ICD CV DEVICE CHECK Implantable Pulse Generator Model D150 CV DEVICE CHECK Implantable Pulse Generator Serial Number [id number] CV DEVICE CHECK Implantable Pulse Generator Implant [...] Rate Histograms reviewed Narrative Procedure Note Shalonda Robison, TUNNEL MINER - 04/01/2025 IMPRESSION: Non-sustained Ventricular Tachycardia * [...] * Heart Rate Histograms reviewed Shalonda Robison NP CV IMPLANTABLE CARDIAC DEVIC E PROCEDURES Final Result * ECG 12 lead (02/26/2025 1:45 PM EDT) Ventricular Rate ECG 59 BPM GEMUSE Atrial Rate 59 BPM GEMUSE P-R Interval 176 ms GEMUSE QRS Duration 100 ms GEMUSE Q-T Interval 412 ms GEMUSE QTc 407 ms GEMUSE P Wave [place] -61 degrees GEMUSE R [place] 19 degrees GEMUSE T [place] -34 degrees GEMUSE ECG Interpretation Ectopic atrial rhythm T wave abnormality , consider lateral ischemia Abnormal ECG When compared with ECG of 24-AUG-2024 13:42, Ectopic atrial rhythm has replaced Sinus rhythm Confirmed by Nino ORANTES, EVA ([id number]) on 03/05/2025 8:25:47 AM GEMUSE 02/26/2025 1:02 PM EDT 03/05/2025 8:25 AM EDT us Eva Orantes MD ECG ORDERABLES Edited Result - Final GEMUSE from Last 3 Months Insurance [employer] [facility] Care Teams Rental Salesperson Relationship Specialty Start Date End Date Tyler Davies PA [address] [place] [phone] PCP - General Physician Batch Mixing Truck Driver 02/26/25
[2025-04-04 07:48] LABS: Hematocrit 41.8 % (42.0-52.0); Hemoglobin 14.3 g/dl (14.0-18.0); Mean Corpuscular HGB Conc 34.2 g/dl (31.0-36.0); Mean Corpuscular Hemoglobin 31.8 pg (27.0-33.0); Mean Corpuscular Volume 92.9 fL (80.0-98.0); NRBC Abs Auto 0.000 X10*3/uL (0.0-0.012); NRBC Pct Auto 0.0 /100WBC (0.0-0.2); Platelet Count 224 X10*3/uL (160-400); Red Blood Count 4.50 X10*6/uL (4.60-5.80); White Blood Count 5.5 X10*3/uL (4.8-10.8)
[2025-04-04 08:17] LABS: Alanine Aminotransferase 35 U/L (0-40); Albumin Level 4.5 g/dL (3.5-5.0); Alkaline Phosphatase 58 U/L (39-117); Anion Gap 11 (12-20); Aspartate Amino Transferase 31 U/L (5-37); Blood Urea Nitrogen 13 mg/dL (9-16); Calcium 9.0 mg/dL (8.4-10.2); Carbon Dioxide 23 mmol/L (22-29); Chloride 113 mmol/L (96-108); Cholesterol 133 mg/dL (<200); Estimated Glomerular Filt Rate > 60; HDL Cholesterol 50 mg/dL (>40); Potassium 4.4 mmol/L (3.3-5.1); Sodium 143 mmol/L (135-145); Total Protein 7.2 g/dL (6.5-8.0); Triglycerides 134 mg/dL (<150)
[2025-04-04 08:44] LABS: Microalbum/Creatinine Ratio Ur 16.8 ug/mg cr (<30)
== END 2025-04-04 07:01 | disposition home or self-care (01) ==
LOC: HO.LAB 07:00
PROVIDERS: PCP Physician Assistant; Visit Provider Physician Assistant
DX: E78.2 Mixed hyperlipidemia (principal); I42.9 Cardiomyopathy, unspecified
CPT/HCPCS: 36415; 80053; 80061; 82043; 82570; 85027

== ENCOUNTER 2025-05-07 10:17 | Outpatient (REF) | payer OTHER, SELFPAY ==
--- OUTSIDE RECORDS SUMMARY | 2025-05-07 12:37 | XMS_ITS | Clinical Summary ---
Author Organization [address] [place] [address] [place] [phone] Phone Care Team Providers Care Cooperative Education Coordinator Name Role Phone Tyler Davies Primary Care Provider Allergies Active Allergy Reactions Criticality Noted Date Comments Grass Pollen-Red Top, Standard 09/20 Other 09/20/2020 Tree Extract Medications rosuvastatin (CRESTOR) 20 mg tablet TAKE 1 TABLET BY MOUTH DAILY 4 Active LORazepam (ATIVAN) 1 mg tablet 2 Active sacubitriL-vals nahomi (ENTRESTO) 49-51 mg per tablet Take 1 tablet by mouth 2 (two) times a day. 180 each 3 5 12/22/19 26 Active carvediloL (COREG) 25 mg tablet Take 1 tablet (25 mg total) by mouth 2 (two) times a day with meals. 5 Active carvediloL (COREG) 25 mg tablet Take 1 Tablet by mouth 2 times daily. Taken with 0.5 tablet of the 6.25 mg bid 04/19/20 25 Discontinued Active Problems Problem Noted Date Diagnosed Date [...] SGLT2 inhibitor. No current diuretic requirement. Single-chamber [employer] ICD, stable burden of nonsustained VT, [...] has a noncompaction cardiomyopathy. He has a [employer] ICD in place and has had [...] Encounters Date Type Department Care Team Description 04/19/2025 12:10 PM EST Ancillary Procedure [facility] Card[facility] - [address] [place] [address] 04/19/2025 Telephone [facility] - [address] [place] [address] Coretta Lockwood PA 04/01/2025 6:25 PM EDT Ancillary Procedure [facility] - [address] [place] [address] 02/26/2025 12:55 PM EDT Office Visit [facility] - [address] [place] [address] Eva Orantes MD Nonsustained ventricular tachycardia (CMS/HCC V24, CMS/HCC V28) (Primary Dx); HFrEF (heart failure with reduced ejection fraction) (CMS/HCC V24, CMS/HCC V28); Left ventricular noncompaction cardiomyopathy (CMS/HCC V24, CMS/HCC V28); Ventricular septal defect (VSD); ASD (atrial septal defect) 02/22/2025 9:40 AM EDT Ancillary Procedure [facility] - [address] [place] [address] 02/22/2025 Telephone [facility] - [address] [place] [address] Shalonda Robison NP 02/19/2025 2:00 PM EDT Ancillary Procedure [facility] - [address] [place] [address] from Last 3 Months Social History Tobacco [...] Vaccine ( season) 2025 06/02/2021, 06/24/2020, 06/03/2020 DTaP,Tdap,and Td Vaccines (2 - Td or Tdap) 05/11/2028 05/11/2018 RSV Immunization Adult Patients (1 - 1-dose 75+ series) 2051 Influenza Vaccine Completed 04/04/2025, , 03/31/2023, Additional history exists HIB Vaccines Aged Out [...] this topic Medical Devices Implanted Type Area Heavy Duty Mechanic Device Identifier Shelf Expiration Date Model / Serial / Lot Bsci-Crm [id number] Implanted:06/14 (Quantity not on file) Cardiac ICD [employer] C[employer] RHY[employer] MGMT D150 / [id number] / Procedures Procedure Name Priority Date/Time Associated Diagnosis Comments CARDIAC DEVICE CHECK- REMOTE- MURJ Routine 04/19/2025 12:06 PM EST CARDIAC DEVICE CHECK- REMOTE- MURJ Routine 04/01/2025 6:22 PM EDT ECG 12-LEAD Routine 02/26/2025 1:45 PM EDT Nonsustained ventricular tachycardia (CMS/HCC V24, CMS/HCC V28) CARDIAC DEVICE CHECK- REMOTE- MURJ Routine 02/22/2025 9:38 AM EDT CARDIAC DEVICE CHECK- REMOTE- MURJ Routine 02/19/2025 1:59 PM EDT from Last 3 Months Results * Cardiac device check - Remote- MURJ (04/19/2025 12:06 PM EST) Only the most recent of4 resultswithin the time period is included. Date Time Interrogation Session [id number] CV DEVICE CHECK Type Interrogation Session Remote Device Initiated CV DEVICE CHECK Implantable Pulse Generator Heavy Duty Mechanic BSX CV DEVICE CHECK Implantable Pulse Generator Type ICD CV DEVICE CHECK Implantable Pulse Generator Model D150 CV DEVICE CHECK Implantable Pulse Generator Serial Number [id number] CV DEVICE CHECK Implantable Pulse Generator Implant Date [id number] CV DEVICE CHECK Battery Remaining Percentage 98.00 CV DEVICE CHECK Battery Remaining Longevity 114.0 CV DEVICE CHECK Battery Status Beginning of Service CV DEVICE CHECK Capacitor Charge Time 11.300 CV DEVICE CHECK Carlos Statistic RV Percent Paced 0.00 CV DEVICE CHECK Lead Channel Sensing Intrinsic Amplitude 8.000 CV DEVICE CHECK Lead Channel Setting Sensing Sensitivity 0.60 CV DEVICE CHECK Lead Channel Impedance Value 366 CV DEVICE CHECK Lead Channel Setting Pacing [...] Anatomical Region Laterality Modality Device Interroga tion 04/18/2025 1:41 AM EST Impressions 04/19/2025 11:58 AM EST Normal Remote: With Events * Normal Device Function * Events or Alerts: 3 * 1 Binned as VF 18 beats @ 273bpm (04-09-25) * 2 NSVT * Battery: Battery is at 98%, 9.50 yrs * Sensing, impedance and thresholds reviewed * Programmed parameters reviewed * Presenting rhythm reviewed * Heart Rate Histograms reviewed Additional Notes: Device does not alert for VF Narrative Procedure Note Coretta Lockwood PA - 04/19/2025 IMPRESSION: Normal Remote: With Events * Normal Device Function * Events or Alerts: 3 * 1 Binned as VF 18 beats @ 273bpm (04-09-25) * 2 NSVT * Battery: Battery is at 98%, 9.50 yrs * Sensing, impedance and thresholds reviewed * Programmed parameters reviewed * Presenting rhythm reviewed * Heart Rate Histograms reviewed Additional Notes: Device does not alert for VF Coretta MARCELINO CV IMPLANTABLE CARDIAC DEVICE MA OCEDURES Final Result * ECG 12 lead (02/26/2025 1:45 PM EDT) Ventricular Rate ECG 59 BPM GEMUSE Atrial Rate 59 BPM GEMUSE P-R Interval 176 ms GEMUSE QRS Duration 100 ms GEMUSE Q-T Interval 412 ms GEMUSE QTc 407 ms GEMUSE P Wave [place] -61 degrees GEMUSE R [place] 19 degrees GEMUSE T [place] -34 degrees GEMUSE ECG Interpretation Ectopic atrial [...] Final GEMUSE from Last 3 Months Insurance [employer] [facility] Care Teams Cooperative Education Coordinator Relationship Specialty Start Date End Date Tyler Davies PA [address] [place] [phone] PCP - General Physician Maitre D 02/26/25
--- OUTSIDE RECORDS SUMMARY | 2025-05-07 12:37 | XMS_ITS | Clinical Summary ---
Author Organization [facility] Address [address] [place] [phone] Phone Care Team Providers Care Developer [employer]ver Upholstering Name Role Phone Tyler Davies Primary Care [...] Upcoming Encounters Date Type Department Care Team ([facility] st Contact Info) Description 05/14/2025 3:00 PM EST Office Visit [facility] [address] [place] [address] Parrish Gallagher MD [address] [facility] [place] [address] [email or web address] 05/28/2025 2:00 PM EST Appointment [facility] Cardiac Stress Lab [address] [place] [address] Parrish Gallagher MD [address] [facility] Cardi[place] [address] [email or web address] sale to [email or web address] Health Maintenance Due Date Last Done Comments [...] topic Medical Devices Not on file Insurance [facility] [employer] [facility] [employer] [facility] [employer] Care Teams Developer [employer] Upholstering Relationship Specialty Start Date End Date Tyler Davies PA [address] [place] [address] PCP - General Physician Solar Hot Water Installer 10/27/24 Additional Source Comments The information contained in this document represents components of the legal health record. It is not the complete legal health record.[facility]
[2025-05-07 17:04] LABS: Anion Gap 13 (12-20); Blood Urea Nitrogen 17 mg/dL (9-16); Calcium 9.8 mg/dL (8.4-10.2); Carbon Dioxide 25 mmol/L (22-29); Chloride 109 mmol/L (96-108); Estimated Glomerular Filt Rate > 60; Magnesium 2.0 mg/dL (1.6-2.6); Potassium 4.5 mmol/L (3.3-5.1); Sodium 142 mmol/L (135-145)
== END 2025-05-07 10:18 | disposition home or self-care (01) ==
LOC: HO.LAB 10:17
PROVIDERS: PCP Physician Assistant; Visit Provider Physician Assistant
DX: I47.29 Other ventricular tachycardia (principal); I50.20 Unspecified systolic (congestive) heart failure
CPT/HCPCS: 36415; 80048; 83735